=== PATIENT | female | born 1960 | race Two or more races ===

== ENCOUNTER → 2016-12-22 | Outpatient (CLI) | payer OTHER, MEDICARE ==
[2016-05-12 11:25] VITALS: BP 134/67
[~2016-12-22] MED LIST: ALBU8.5H6 IH; BISA-42 PO; CHOL10003 PO; CYAN100T PO; ESOM40CA PO; ETOD400T PO; FENT1PAT15 TD; FENT1PAT21 TD; IBUP-1060 PO; MAGN400T3 PO; OXYC-250 PO; PANT40TA5 PO; POTA20TA4 PO; POTA8TAB PO; TIZA4TAB PO
--- NOTE | 2016-12-23 10:30 | RAD ---
DATE: 12/22/2016 EXAM: DIGITAL SCREEN BILAT W/CAD HISTORY: Routine screening COMPARISON: 09/28/2015 This study was interpreted with the benefit of Computerized Aided Detection (CAD). FINDINGS: Breast Density: SCATTERED The breast parenchyma shows scattered fibroglandular densities. Breast parenchyma level B. There are no dominant suspicious masses, suspicious microcalcifications or evidence of architectural distortion. Benign-appearing calcifications identified in the bilateral breasts. IMPRESSION: Benign findings BI-RADS CATEGORY: 2 BENIGN FINDING RECOMMENDED FOLLOW-UP: 12M 12 MONTH FOLLOW-UP PQRS compliance statement: Patient information was entered into a reminder system with a target due date 12/22/2017 for the next mammogram. Mammography is a sensitive method for finding small breast cancers, but it does not detect them all and is not a substitute for careful clinical examination. A negative mammogram does not negate a clinically suspicious finding and should not result in delay in biopsying a clinically suspicious abnormality. "Our facility is accredited by the [employer] Mammography [employer]."
== END | disposition home or self-care (01) ==
LOC: MAMMO 14:40
PROVIDERS: ATTEND Internal Medicine
DX: Z12.31 Encounter for screening mammogram for malignant neoplasm of breast (principal)
CPT/HCPCS: G0202; 77067

== ENCOUNTER → 2018-03-18 | Outpatient (CLI) | payer OTHER, MEDICARE | END | disposition home or self-care (01) | LOC: KCIC DEXA 14:39 | DX: Z12.31 Encounter for screening mammogram for malignant neoplasm of breast (principal); Z13.820 Encounter for screening for osteoporosis; E34.8 Other specified endocrine disorders | CPT/HCPCS: 77067; 77080 ==

== ENCOUNTER → 2018-05-07 | Outpatient (CLI) | payer OTHER, MEDICARE ==
[2016-05-12 11:25] VITALS: BP 134/67
[~2018-05-07] MED LIST changes: -OXYC-250 PO; +OXYC-328 PO
--- NOTE | 2018-05-07 16:48 | RAD ---
History: Osteoarthritis of the right hip. Pain. Comparison: None. Findings: AP and frog-leg views of the right hip performed weightbearing. No acute fracture or dislocation is identified. Mild right hip degeneration is seen. Impression: Mild right hip degeneration. Electronically signed by: David Marrero MD (05/07/2018 4:45 PM) [place] [id number]
--- NOTE | 2018-05-07 17:23 | RAD ---
Examination: 2 views of the left shoulder HISTORY: History of left shoulder rotator cuff tendinitis COMPARISON: None available. FINDINGS: The humerus head is within the glenoid. Mild degenerative changes glenohumeral joint. Moderate degenerative changes acromioclavicular joint. There is no acute fracture or dislocation identified. IMPRESSION: Degenerative changes glenohumeral joint and a chronic clavicular joint. Electronically signed by: Jonas Hess MD (05/07/2018 5:19 PM) [id number]
== END | disposition home or self-care (01) ==
LOC: RAD 15:52
PROVIDERS: ATTEND Internal Medicine
DX: M16.11 Unilateral primary osteoarthritis, right hip (principal); M19.012 Primary osteoarthritis, left shoulder; Z96.653 Presence of artificial knee joint, bilateral; Z86.711 Personal history of pulmonary embolism; Z87.11 Personal history of peptic ulcer disease; Z87.39 Personal history of other diseases of the musculoskeletal system and connective tissue; Z86.14 Personal history of Methicillin resistant Staphylococcus aureus infection; Z86.010 Personal history of colon polyps; Z90.710 Acquired absence of both cervix and uterus; Z90.49 Acquired absence of other specified parts of digestive tract; Z88.1 Allergy status to other antibiotic agents; Z88.6 Allergy status to analgesic agent; Z88.8 Allergy status to other drugs, medicaments and biological substances; Z82.3 Family history of stroke; Z83.3 Family history of diabetes mellitus
CPT/HCPCS: 73030; 73502

== ENCOUNTER → 2018-06-29 | Outpatient (CLI) | payer OTHER, MEDICARE ==
[2016-05-12 11:25] VITALS: BP 134/67
[~2018-06-29] MED LIST changes: +FURO40TA4 PO
--- NOTE | 2018-06-29 14:07 | PAIN ---
DATE OF SERVICE: 06/29/2018 INITIAL CONSULTATION FOR PAIN CLINIC CHIEF COMPLAINT: Right hip pain. HISTORY OF PRESENT ILLNESS: The patient is a 58-year-old female with history of a fall in [employer] parking lot in November of this year. She fell and hurt her left shoulder more than her right hip, but both have been painful since that time. She is scheduled to have surgery on her left shoulder next month, but her right hip is becoming much more noticeably painful, worse with walking, standing or changing positions. Thus, she is standing on her right leg only, climbing up a stair, getting up on a step or a curb with all of her weight on her right side. The patient reports significant pain in the posterior gluteus, lateral thigh, anterior groin and medial groin and thigh as well, radiating into the anterior thigh. The patient reports that it is getting worse with the activity, standing and walking. She reports it is better with sitting or lying down, but does awaken her from sleep about 3 times a night if she lays on her right side. The patient reports it does not affect her bowel or bladder control, but does affect her ability to walk. She is using a cane, also wearing a back brace, which she reports helps and she has her cane with her today. The patient had plain x-rays and MRI of her right hip showing some narrowing and early changes of degenerative joint disease and osteoarthritis. The patient rates her disability rate from 0-10, 10 being the worst; a 7 with family home responsibilities, recreation, social activity; 8 with occupation; 0 with sexual behavior; 3 with self-care and 7 with life-support activities. The patient reports she has had physical therapy which was not helpful for her hip, but was more helpful for her shoulder and she has had physical therapy for her knees in the past as well as they have both been replaced. The patient reports no loss of motor function, but significant pain with walking, standing and essentially any weightbearing on the right hip, with radiation into the groin, anterior thigh and into the posterior gluteus. PAST MEDICAL HISTORY: Significant for arthritis and diverticulitis. PAST SURGICAL SURGERY: Previous surgeries include varicose vein stripping, colon resection, hernia repair, bilateral knee replacements, left foot cyst excision, carpal tunnel repair bilaterally, ulnar nerve transposition, cholecystectomy, right shoulder surgery and hysterectomy. CURRENT MEDICATIONS: Include Centrum, omeprazole, ibuprofen, oxycodone, pantoprazole, tizanidine, Bentyl, potassium, Lasix, magnesium, iron and zinc. ALLERGIES: THE PATIENT IS ALLERGIC TO IV CONTRAST, CIPRO AND FLAGYL. FAMILY HISTORY: Significant for high blood pressure, cancers and diabetes. SOCIAL HISTORY: The patient does not drink alcohol, does not smoke, does not use any illegal, illicit or recreational drugs. He is , lives with her spouse and has 2 grandchildren living at home and lives locally in [place], [place]. REVIEW OF SYSTEMS: The patient's review of systems is positive for those items mentioned in the history of present illness. All systems reviewed and otherwise negative. It is complete, full and well documented on the patient's chart. PHYSICAL EXAMINATION: VITAL SIGNS: Today, the patient's blood pressure is 144/88, pulse 76, respirations 18 and temperature is 97.7 degrees Fahrenheit. Height is 5 feet 2 inches, weight is 248 pounds. GENERAL: The patient is awake, alert, oriented, appropriate, very pleasant demeanor. HEENT EXAMINATION: Shows normocephalic, atraumatic. Extraocular movements are intact and symmetrical. Oral cavity, mucous membranes are moist and pink. Dentition is intact. NECK: Shows anterior throat supple, without palpable lymphadenopathy noted. Swallow reflex is symmetrical. CHEST: Shows normal with inspection. Breath sounds are clear to auscultation bilaterally. HEART: Shows S1, S2 clear. No murmurs auscultated. ABDOMEN: Obese, soft, nontender and nondistended. No palpable organomegaly is noted. No rebound or guarding demonstrated. BACK: Shows spine grossly in the midline. Slight exaggeration of thoracic kyphosis and some minor flattening of lumbar lordotic curvature. Good rotational motion of both the cervical and lumbar spine both laterally as well as extension and flexion without difficulty. EXTREMITIES: The patient's lower extremities show deep tendon reflexes 1+ in the patellar and tendo calcaneus tendons. A well-healed surgical scar is noted of her bilateral knees. Motor exam is approximately 4 on a scale of 5, but equal and symmetrical dorsiflexion, extension, quadriceps and hamstring flexion. Peripheral pulses are 1+ posterior tibia. No peripheral edema is noted. The patient does have a positive Rosalio sign on the right, with external rotation and displacement of the right hip; left side is negative. The patient is able to stand, has difficulty trying to stand on her toes and uses her left leg significantly to favour when getting out of the chair, also using a cane in her right hand and has a significant antalgic gait, favoring the right lower extremity with a limp with walking. SKIN: Warm and dry, good turgor. No edema. No sores or rashes. IMPRESSION: 1. This is a 58-year-old female with a history of a fall in 11/2017, with pain in the right hip as well as left shoulder. 2. Plain films, right hip, as noted. 3. Arthritis. 4. Bilateral knee replacements. PLAN: Options were discussed with the patient including conservative medical management, physical therapy and interventional techniques. She would like to pursue interventional technique. She has significant pain in the right hip, with radiation to the groin as well as into the gluteus and anterior thigh, excess with weightbearing and consistent with degenerative changes on plain film of the right hip. We discussed an intra-articular joint injection using description as well as anatomical models to describe the procedure. The patient will wait for preauthorization with her insurance provider and she would like to proceed with this. We will, in the meantime, try Medrol Dosepak. The patient was given instruction as well as side effects to be aware of with the medication and she will follow up in approximately 1 week. We will plan on right intra-articular hip joint injection at that time for the primary osteoarthritic hip condition. JOE MACIAS MD DR: YAZ/keya JOB#: [id number] / [id number]
== END | disposition home or self-care (01) ==
LOC: PNCL 10:06
PROVIDERS: ATTEND Anesthesiology
DX: M25.551 Pain in right hip (principal); M19.90 Unspecified osteoarthritis, unspecified site; Z96.653 Presence of artificial knee joint, bilateral; Z90.710 Acquired absence of both cervix and uterus; Z90.49 Acquired absence of other specified parts of digestive tract; Z83.3 Family history of diabetes mellitus
CPT/HCPCS: 99214

== ENCOUNTER → 2018-07-23 | Outpatient (CLI) | payer OTHER, MEDICARE ==
[2016-05-12 11:25] VITALS: BP 134/67
[~2018-07-23] MED LIST changes: +BUPIVACAINE MPF 0.25% 10 ML VIAL. ONE; -OXYC-328 PO; +OXYC1TAB22 PO; +methylPREDNISolone ACETATE 80 MG/ML VIAL. ONE
--- NOTE | 2018-07-23 12:18 | PAIN ---
DATE OF SERVICE: 07/23/2018 PROGRESS NOTE FOR PAIN CLINIC DIAGNOSIS: Right hip joint pain with primary osteoarthritis, right hip joint. HISTORY OF PRESENT ILLNESS: The patient is a 58-year-old female who returns for followup status post pre-evaluation and preauthorization for a right intraarticular hip joint injection. The patient has obtained this now and returns today and would like to proceed. The patient still has significant pain in the right hip with walking, standing, climbing stairs, especially putting all her weight on her right leg, her hip, especially with climbing on a step or stair and walking up a hill on the right side. The patient reports it is becoming more sharp, more shooting into the right groin as well as in the anterior thigh and the posterior gluteus as well. The patient reports it is a 9 on a scale of 10 at its worst, 6 on average, 6 at its least and is a 6 today. The patient reports it is a sharp, becoming more unbearable at times, again with radiating into the right groin with weightbearing. The patient reports it awakens her from sleep about every 4-5 hours, especially if she lays on her right side. The patient reports no new motor or sensory deficits, no new changes. PHYSICAL EXAMINATION: VITAL SIGNS: The patient's blood pressure 118/73, pulse 66, respirations 18, temperature 97.9 degrees Fahrenheit, weight is 244 pounds. GENERAL: The patient is awake, alert, oriented, appropriate, very pleasant demeanor. HEENT: Head shows normocephalic, atraumatic. Extraocular movements are intact and symmetrical. Oral cavity: Mucous membranes are moist and pink. Dentition is intact. NECK: Shows anterior throat supple without palpable lymphadenopathy noted. Swallow reflex is symmetrical. CHEST: Shows normal on inspection. Breath sounds are clear to auscultation bilaterally. HEART: Shows S1, S2 clear. No murmurs auscultated. ABDOMEN: Soft, nontender, nondistended. Significant pannus is noted. The patient shows no organomegaly, rebound or guarding. BACK: Shows spine grossly in the midline. Normal appearing thoracic kyphosis and some minor flattening of lumbar lordotic curvature. Lumbar paraspinous muscle shows symmetrical on inspection without significant tenderness on palpation and good rotational motion laterally as well as extension and flexion. EXTREMITIES: The patient's lower extremities show deep tendon reflexes at 1+ in the patellar and tendo calcaneus tendons, are equal. Motor exam is strong with approximately 4 on a scale of 5, but equal and symmetrical with dorsiflexion, extension, quadriceps and hamstring flexion. Peripheral pulses are 1+ posterior tibial. The patient does have positive Rosalio's maneuver with external rotation on the right side of the hip, but negative on the left. Options were discussed with the patient. The patient's old chart was reviewed as her current medication regimen updated. Current review of systems updated today as well. We will proceed with a right intraarticular hip joint injection today with C-arm fluoroscopic guidance. Risks were discussed including but not limited to bleeding, infection, possibility of intravascular injection sequelae, spread of local anesthetic and numbness, side effects of steroid medication, exposure to fluoroscopy and poor results regarding pain control. The patient understands and wished to proceed. The patient will return to the clinic in approximately 3 weeks for followup, was counseled as to return appointment, activity level and side effects to be aware of. DIAGNOSIS: Primary osteoarthritis, right hip joint with right hip joint pain. PROCEDURE: Right intraarticular hip joint injection using C-arm fluoroscopic guidance under sterile prep and drape using local anesthetic. MEDICATION INJECTED: A total of 80 mg Depo-Medrol plus 3 mL of 0.25% bupivacaine and no contrast as the patient is allergic. CONDITION AT DISCHARGE: Stable. The patient tolerated the procedure well, had no complications. JOE MACIAS MD DR: YAZ/keya JOB#: [id number] / [id number]
== END | disposition home or self-care (01) ==
LOC: PNCL 09:35
PROVIDERS: ATTEND Anesthesiology
DX: M16.11 Unilateral primary osteoarthritis, right hip (principal); Z88.1 Allergy status to other antibiotic agents; Z88.8 Allergy status to other drugs, medicaments and biological substances; Z91.041 Radiographic dye allergy status
CPT/HCPCS: 20610; 77002; J1040; J3490

== ENCOUNTER 2018-07-30 08:20 | Day surgery (SDC) | payer OTHER, MEDICARE ==
[~2018-07-30] VITALS: Ht 157.5 cm; Wt 115.7 kg
[~2018-07-30 08:20] MED LIST changes: -BUPIVACAINE MPF 0.25% 10 ML VIAL. ONE; +LIDOCAINE 2% PF Vial for OR 5 ML VIAL. ONE; +PROPOFOL 20 ML IV ONE; -methylPREDNISolone ACETATE 80 MG/ML VIAL. ONE
[2018-07-30] MEDS ORDERED: ROCURONIUM 50 MG/5 ML VIAL. ONE (08:21)
[2018-07-30] MEDS ORDERED: fentaNYL PF VIAL 100 MCG/2 ML VIAL ONE (08:21)
[2018-07-30] MEDS ORDERED: fentaNYL PF VIAL 100 MCG/2 ML VIAL IV PRN (08:45)
[2018-07-30] MEDS ORDERED: ONDANSETRON PF 4 MG/2 ML VIAL. IV PRN (08:45)
[2018-07-30] MEDS ORDERED: LIDOCAINE 1% PF 2 ML VIAL. ID PRN (08:45)
[2018-07-30] MEDS: IV RINGERS,LACTATED 1000ML 1,000 ML IV SCH ×2 (09:35→13:47)
[2018-07-30] MEDS ORDERED: BUPIVAC MPF-EPI 0.5%-1:200000 30 ML VIAL. ONE (10:15)
[2018-07-30] MEDS ORDERED: EPINEPHrine VIAL 30 MG/30 ML VIAL ONE (10:17)
[2018-07-30] MEDS ORDERED: ROPIVacaine 0.5% PF 20 ML VIAL. ONE (10:27)
[2018-07-30] MEDS ORDERED: MIDAZOLAM HCL/PF 2 MG/2 ML VIAL. ONE (10:28)
[2018-07-30] MEDS ORDERED: DESFLURANE 61 TO 120 MINUTES IH ONE (11:11)
[2018-07-30] MEDS ORDERED: DEXAMETHASONE SOD PHOS 20 MG/5 ML VIAL. ONE (11:11)
--- NOTE | 2018-07-30 11:20 | DISCH ---
DISCHARGE INSTRUCTIONS Condition on Discharge Condition on Discharge: Stable Activity After Discharge Activity Instructions for Disc: Other, see below (and motor use of left hand with elbow at side only, no lifting arm away from side pushing pulling or lifting) Other activity instructions: May pendulum arm at side Diet after Discharge Diet after Discharge: Cardiac, Regular Diet Texture: Regular Liquid Texture: Thin Liquid Wound Incision Care Wound/Incision Care: Change dressing (remove dressing in 3 days may then shower no soaking until sutures removed) Community/Resources/Services Services at Discharge: PT EVALUATE & TREAT (passive range of motion left shoulder only 1 month status post rotator cuff repair) Contacting the DRJeronimo after DC Call your doctor for: Concerns you may have Follow-Up Follow up with: Vasiliy 10-14 days Treatment/Equipment after DC Adaptive Equipment Issued: None OSCAR WADE MD Jul 30, 2018 11:19
[2018-07-30] MEDS ORDERED: OXYC1TAB22 PO (11:22)
[2018-07-30] MEDS ORDERED: ONDANSETRON PF 4 MG/2 ML VIAL. ONE (11:26)
[2018-07-30] MEDS ORDERED: NEOSTIGMINE METHYLSULFATE 5 MG/5 ML SYRINGE. ONE (11:26)
[2018-07-30] MEDS ORDERED: GLYCOPYRROLATE 1 MG/5 ML VIAL. ONE (11:27)
[2018-07-30] MEDS ORDERED: MORPHINE SULFATE 10 MG/ML VIAL. ONE (11:36)
[2018-07-30] MEDS: MORPHINE SULFATE 2 MG/ML VIAL. IV PRN ×2 (13:43→14:20)
[2018-07-30] MEDS: PROCHLORPERAZINE 10 MG/2 ML VIAL. IV PRN ×2 (13:43→14:20)
[2018-07-30] MEDS: fentaNYL PF VIAL 100 MCG/2 ML VIAL IV PRN ×2 (13:46→14:21)
[2018-07-30] MEDS ORDERED: KETOROLAC 30 MG/ML VIAL. IV ONE (14:05)
[2018-07-30] MEDS: HYDROmorphone 2 MG/ML VIAL IV PRN ×3 (14:24→15:05)
[2018-07-30] MEDS ORDERED: oxyCODONE/APAP 10/325 1 TAB TABLET PO ONE (14:30)
[2018-07-30 15:31] VITALS: BP 144/67
--- NOTE | 2018-07-30 19:40 | PDOC4 ---
Operative Note Operative Note Date of surgery: 07/30/2018 Preoperative diagnosis: Full-thickness rotator cuff tear left shoulder Postoperative diagnosis: Same plus severe degenerative changes at the acromioclavicular joint and impingement subacromial Operative procedure: Right shoulder arthroscopy rotator cuff repair and arthroscopic distal clavicle excision subacromial decompression and extensive labral debridement as well as partial thickness debridement of a subscapularis tear Surgeon: Vasiliy Anesthesia: Gen. Estimated blood loss: 15 mL Complications: None Operative indications: Patient is a 58-year-old female with ongoing left shoulder pain unimproved status post an injury with weakness and ongoing pain with use and sleeping. Please see my clinic note for additional details. I gone over with her risks benefits postoperative course of operative treatment including rationale for reattachment of the rotator cuff, assessment of and treatment of any other pathologies as appropriate the long recovery process associated possibility of nonhealing infection nerve or blood vessel damage medical or other anesthetic complications among others. All her questions were answered and she wishes to proceed with surgical evaluation and treatment. Operative text: Patient was identified procedure verified patient placed in the supine position on the operative table. After adequate amounts of general anesthesia were administered he was placed decubitus left side up using the beanbag for support and all bony prominences were well-padded. The left shoulder was prepped and draped in standard sterile fashion and after timeout was performed patient procedure identified and verified she was placed in 10 pounds of traction noted to have previously full range of motion with no instability a standard posterior portal was established an anterior portal established using spinal needle localization and the shoulder joint was systematically examined. 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 glenohumeral joint was well preserved as were the capsule ligament structures. Subacromial space was then entered she was noted to have a large anterior acromial spur which was converted to a type I acromion using the arthroscopic bur using cutting block technique. Distal clavicle was previously symptomatic and was excised 1 cm to achieve an adequate joint space preserving the overlying joint capsule for stability. Rotator cuff repair was then carried out by placing 2 absorbable Laura peek anchors along the medial row after preparation of the footprint to bleeding bony tissue without decortication. Tape sutures were placed in a mattress type fashion and tied with sliding locking knots to form a medial row repair lateral row was repaired with [facility] lateral row sutures which were tensioned to perform an excellent footprint repair watertight under all degrees of internal/external rotation. Shoulder joint was drained of arthroscopic fluid portals were closed with buried Vicryl subcuticular Monocryl Steri-Strips and Mastisol sterile dressings were applied patient was placed in an immobilizer and returned to recovery room in stable condition having tolerated procedure well OSCAR WADE MD Jul 30, 2018 19:40
== END 2018-07-30 16:00 | disposition home or self-care (01) ==
LOC: SURG 08:20
PROVIDERS: ATTEND Orthopaedic Surgery
DX: M75.122 Complete rotator cuff tear or rupture of left shoulder, not specified as traumatic (principal); J45.909 Unspecified asthma, uncomplicated; Z91.041 Radiographic dye allergy status; Z88.8 Allergy status to other drugs, medicaments and biological substances; Z96.653 Presence of artificial knee joint, bilateral; Z90.710 Acquired absence of both cervix and uterus; Z98.890 Other specified postprocedural states
CPT/HCPCS: 29823; 29824; 29827; A7015; C1713; J0171; J0690; J0780; J1100; J1170; J1885; J2001; J2250; J2270; J2405; J2704; J2710; J2795; J3010; J3490; J7120

== ENCOUNTER → 2018-12-10 | Outpatient (CLI) | payer OTHER, MEDICARE ==
[~2018-12-10] MED LIST changes: +BUPIVACAINE MPF 0.25% 10 ML VIAL. ONE; -CYAN100T PO; +CYAN100T2 PO; +IOHEXOL 180 MG/ML 10 ML VIAL. ONE; +LIDOCAINE 1% PF 2 ML VIAL. ONE; -LIDOCAINE 2% PF Vial for OR 5 ML VIAL. ONE; -PROPOFOL 20 ML IV ONE; +methylPREDNISolone ACETATE 80 MG/ML VIAL. ONE
--- NOTE | 2018-12-11 01:39 | PAIN ---
DATE OF SERVICE: 12/10/2018 PROGRESS NOTE FOR PAIN CLINIC: DIAGNOSIS: Right hip joint pain with primary osteoarthritis, right hip joint. HISTORY OF PRESENT ILLNESS: The patient is a 58-year-old female who returns for followup status post right intraarticular hip joint injection x 1. The patient reports about 20% improvement overall. Initially, she was doing much better, but she tripped over a cat at home and stumbled and caused some pain, not only in the hip, but also in her low back on the right side. The patient reports her pain is now a 9 on a scale of 10 at its worst, 7 on average, 6 at its least over the past week, and is a 7 today. The patient reports it is aching and sharp. Denies radiating to the right groin, worse with walking, standing and weightbearing, changing positions, stepping up on a curb or step into a house or a stair. The patient reports no new motor or sensory deficits, still has significant back pain, and is awaiting an MRI scan which was ordered previously. The patient reports it is better with sitting or lying down, does not awaken her from sleep at night. PHYSICAL EXAMINATION: VITAL SIGNS: The patient's blood pressure is 125/91, pulse 73, respirations 18, temperature 97.4 degrees Fahrenheit, height is 5 feet 2 inches and weight is 247 pounds. GENERAL: The patient is awake, alert, oriented, appropriate, very pleasant demeanor. HEENT: Head is normocephalic, atraumatic. Extraocular movements are intact, symmetrical. Oral cavity: Mucous membranes moist and pink. Dentition is intact. NECK: Shows anterior throat supple without palpable lymphadenopathy noted. Swallow reflex symmetrical. CHEST: Shows normal on inspection. Breath sounds clear to auscultation bilaterally. HEART: Shows S1, S2 clear. No murmurs auscultated. ABDOMEN: Soft, nontender, nondistended. No palpable organomegaly is noted. No rebound or guarding demonstrated. BACK: Shows spine grossly in the midline. Normal appearing thoracic kyphosis, some minor flattening of lumbar lordotic curvature. Lumbar paraspinous muscle shows symmetrical on inspection, with palpation shows some moderate tenderness diffusely bilaterally in the middle and lower distribution of paraspinous muscles, but without radiation. EXTREMITIES: The patient's lower extremities show deep tendon reflexes at 1+ in the patellar and tendo calcaneus tendons. Motor exam is approximately 4 on a scale of 5, but equal and symmetrical dorsiflexion, extension, quadriceps and hamstring flexion and equal. The patient does have a positive Rosalio's sign still on the right side with external rotation of the right hip with knee flexion, left side is negative. Peripheral pulses are 1+ posterior tibial. No peripheral edema is noted bilaterally. Options were discussed with the patient. The patient's old chart was reviewed as her current medication regimen updated. Current review of systems updated today as well and we will proceed with a second intraarticular hip joint injection today with fluoroscopic guidance. Risks were again discussed including, but not limited to bleeding, infection, possibility of intravascular injection sequelae, spread of local anesthetic and numbness, side effects of steroid medication and poor results regarding pain control. The patient understands and wished to proceed. The patient will return to clinic in approximately 2 weeks for followup. She was counseled as to return appointment, activity level and side effects to be aware of. DIAGNOSIS: Right hip joint pain with primary osteoarthritis, right hip joint. PROCEDURE: Right intraarticular hip joint injection using C-arm fluoroscopic guidance under sterile prep and drape using local anesthetic. MEDICATION INJECTED: A total of 3 mL of 0.25% bupivacaine and 80 mg Depo-Medrol. CONDITION AT DISCHARGE: Stable. The patient tolerated procedure well, had no complications. JOE MACIAS MD DR: YAZ/keya JOB#: [id number] / [id number]
== END | disposition home or self-care (01) ==
LOC: PNCL 11:11
PROVIDERS: ATTEND Anesthesiology
DX: M16.11 Unilateral primary osteoarthritis, right hip (principal); Z88.1 Allergy status to other antibiotic agents; Z91.041 Radiographic dye allergy status; Z88.8 Allergy status to other drugs, medicaments and biological substances
CPT/HCPCS: 20610; 77002; J1040; J3490; Q9965

== ENCOUNTER → 2019-03-25 | Outpatient (CLI) | payer OTHER ==
[~2019-03-25] MED LIST changes: -BUPIVACAINE MPF 0.25% 10 ML VIAL. ONE; -IOHEXOL 180 MG/ML 10 ML VIAL. ONE; -LIDOCAINE 1% PF 2 ML VIAL. ONE; -PANT40TA5 PO; +PANT40TA77 PO; -TIZA4TAB PO; +TIZA4TAB2 PO; -methylPREDNISolone ACETATE 80 MG/ML VIAL. ONE
--- NOTE | 2019-03-25 15:51 | KCIC ---
Study: MRI of the right hip without contrast INDICATION: Chronic right hip pain. COMPARISON: No prior cross-sectional imaging of the right hip is available for comparison. TECHNIQUE: Multiplanar MR imaging of the right hip performed without the use of intravenous or intra-articular contrast. FINDINGS: The study is limited by patient body habitus with a resultant decrease [id number] ratio. Bones/hip: Extensive marrow edema involving the right femoral head and extending into the neck as well as a prominent area of femoral head subchondral sclerosis. Less pronounced subchondral marrow edema/sclerosis along the acetabular side of the right hip joint but with multifocal prominent subchondral cysts. Severe joint space narrowing and background osteophytosis. The left hip is not well evaluated but there appears to be mild arthrosis. Degenerative changes also seen at the pubic symphysis and bilateral sacroiliac joints. With some mild edema along the iliac side of the joints. Incompletely evaluated degenerative changes the lower lumbar spine with disc space narrowing and desiccation at L5-S1. Labrum/cartilage: Extensive full-thickness chondral loss. Extensive degenerative tearing of the labrum. Ligamentum teres: Difficult to evaluate due to the degree of joint space narrowing. Greater trochanteric bursa: Unremarkable. Musculotendinous: The right gluteus medius and minimus tendons are intact, as are the right iliopsoas and common hamstring tendons. There is tendinosis and probable partial tearing of the left common hamstring origin. Asymmetric fatty atrophy of the right quadratus femoris muscle, image 22 series 5. More mild muscular fatty infiltration scattered elsewhere. Miscellaneous: Small right hip effusion with synovitis. Mild pericapsular edema. The right sciatic nerve bundle is unremarkable. IMPRESSION: 1. Degraded study secondary to patient body habitus which lowers the [id number] ratio. 2. End-stage osteoarthrosis of the right hip as detailed above. Extensive marrow edema involving the femoral head and extending into the femoral neck as well as a prominent area of subchondral sclerosis of the femoral head. These findings are favored related to the severe arthrosis though a component of superimposed avascular necrosis is not entirely excluded. 3. Small right hip joint effusion with synovitis as well as some mild pericapsular soft tissue edema. 4. Degenerative changes also noted at the lower lumbar spine, sacroiliac joints and pubic symphysis. Probable mild osteoarthrosis of the left hip. 5. Left common hamstring origin tendinosis and suspected partial tearing. No acute musculotendinous injury seen at the right hip. 6. Of uncertain etiology is asymmetric fatty atrophy of the quadratus femoris on the right without narrowing of the ischiofemoral space. Electronically signed by: ROSI BAH MD (03/25/2019 3:48 PM) [id number]
== END | disposition home or self-care (01) ==
LOC: KCIC MRI 10:42
PROVIDERS: ATTEND Internal Medicine
DX: M16.11 Unilateral primary osteoarthritis, right hip (principal); M47.817 Spondylosis without myelopathy or radiculopathy, lumbosacral region; M48.07 Spinal stenosis, lumbosacral region; M25.451 Effusion, right hip; G89.29 Other chronic pain; M25.851 Other specified joint disorders, right hip
CPT/HCPCS: 73721

== ENCOUNTER → 2019-05-09 | Outpatient (CLI) | payer BC, OTHER ==
[~2019-05-09] MED LIST changes: +ACET500T68 PO; +DICY10CA3 PO; +FERR325T14 PO; +MAGN250T9 PO; +MAGN400C PO; +MULT-658 PO; +POTA500T5 PO; +ZINC50TA33 PO
[2019-05-09 10:28] LABS: ALBUMIN 3.7 g/dL (3.4-5.0); CALCIUM 9.3 mg/dL (8.5-10.1); CREATININE 0.4 mg/dL (0.6-1.0); GFR 163.9; POTASSIUM 4.6 mmol/L (3.5-5.1)
[2019-05-09 10:35] LABS: BASO % 1 % (0-3); EOS # 0.2 x10^3/uL (0.0-0.7); EOS % 3 % (0-3); HEMATOCRIT 35.6 % (36.0-47.0); HEMOGLOBIN 11.9 g/dL (12.0-15.5); LYMPH # 1.9 x10^3/uL (1.0-4.8); LYMPH % 28 % (24-48); MEAN CORPUSCULAR HEMOGLOBIN 31 pg (25-35); MEAN CORPUSCULAR HGB CONC 33 g/dL (31-37); MEAN CORPUSCULAR VOLUME 93 fL (79-100); MONO # 0.5 x10^3/uL (0.0-1.1); MONO % 7 % (0-9); NEUT # 4.1 x10^3/uL (1.8-7.7); NEUT % 61 % (31-73); PLATELET COUNT 227 x10^3/uL (140-400); RED BLOOD COUNT 3.83 x10^6/uL (3.50-5.40); RED CELL DISTRIBUTION WIDTH 13.1 % (11.5-14.5); WHITE BLOOD COUNT 6.7 x10^3/uL (4.0-11.0)
[2019-05-09 10:41] LABS: PROTHROMBIN TIME PATIENT 13.2 SEC (11.7-14.0)
[2019-05-09 12:26] LABS: BILIRUBIN,URINE NEGATIVE (NEG); CLARITY,URINE CLEAR; COLOR,URINE YELLOW; NITRITE,URINE NEGATIVE (NEG); PROTEIN,URINE NEGATIVE (NEG-TRACE); UROBILINOGEN,URINE 0.2 mg/dL (0.2 mg/dL)
[2019-05-09 12:56] LABS: SQUAMOUS EPITHELIAL CELL,UR MOD /LPF
[2019-05-09 12:57] LABS: AMORPHOUS SEDIMENT,UR PRESENT /HPF; BACTERIA,URINE 0 /HPF (0-FEW); RBC,URINE 0 /HPF (0-2)
--- NOTE | 2019-05-09 12:57 | EKG ---
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
--- NOTE | 2019-05-09 15:47 | RAD ---
CHEST PA LATERAL History: Presurgical evaluation for right hip surgery. Heart murmur. Comparison: 04/22/2016 AP view of the chest. Findings: The cardiomediastinal silhouette is normal. Pulmonary vasculature is normal. The lungs are clear. No pleural effusion or pneumothorax is seen. There is no acute bone abnormality. Upper abdominal surgical clips are present. IMPRESSION: No acute cardiopulmonary process. Electronically signed by: Onesimo Pineda MD (05/09/2019 3:44 PM) [facility]
== END | disposition home or self-care (01) ==
LOC: SURGPAT 16:08
PROVIDERS: ATTEND Orthopaedic Surgery
DX: Z01.818 Encounter for other preprocedural examination (principal); R01.1 Cardiac murmur, unspecified; Z98.890 Other specified postprocedural states; R79.1 Abnormal coagulation profile
CPT/HCPCS: 36415; 71046; 80048; 81001; 82040; 82306; 85025; 85610; 85651; 85730; 87641; 93005

== ENCOUNTER 2019-05-19 19:51 | Emergency (ER) | payer BC, OTHER ==
[~2019-05-19] VITALS: Ht 157.5 cm; Wt 110.2 kg
[~2019-05-19 19:51] MED LIST changes: -MAGN400T3 PO; +MAGN400T5 PO
--- NOTE | 2019-05-19 20:55 | PHYS DOC ---
Past Medical History Past Medical History: Diverticulitis, Other Additional Past Medical Histor: CARPAL TUNNEL Past Surgical History: Cholecystectomy, Hysterectomy, Knee Replacement, Other Additional Past Surgical Histo: HERNIA REPAIR Alcohol Use: None Drug Use: None Adult General Chief Complaint Chief Complaint: HIP PAIN HPI HPI Patient is a 59 year old female with history of chronic right hip pain who presents to the ED today complaining of the same, patient denies any known injury. She rates the pain at 10 out of 10 and describes results throbbing and constant. She states she is supposed to have right hip replacement on May 24, 2019 which is 5 days out, she states she is on Percocet 10/325 mg, she states there is a mixup on her prescription, she states her PCP ordered some pain medicine for her when she went to the pharmacy and they requested insurance approval, she states when she contacted the PCPs office for insurance approval the PCP stated the approval was already done by him but the pharmacy states she cannot be given the prescription until the approval can be done. Patient states the PCP requested her to come to the ED. Review of Systems Review of Systems Constitutional: Denies fever or chills [] Musculoskeletal: Reports right hip pain Integument: Denies rash or skin lesions [] Neurologic: Denies headache, focal weakness or sensory changes [] All other systems were reviewed and found to be within normal limits, except as documented in this note. Current Medications Current Medications Current Medications Medications (Trade) Dose Ordered Sig/Rossy Start Time Stop Time Status Last Admin Dose Admin Diazepam (Valium) 5 mg 1X ONCE 05/19/19 21:00 05/19/19 21:01 05/19/19 20:39 5 MG Hydromorphone HCl (Dilaudid) 1 mg 1X ONCE 05/19/19 21:00 05/19/19 21:01 05/19/19 20:39 1 MG Allergies Allergies Allergies Coded Allergies Type Severity Reaction Last Updated Verified Iodinated Contrast Media Allergy Intermediate hives, SOA, 07/30/18 Yes Metronidazole HCl Allergy Intermediate Hives, chest feels tight 07/30/18 Yes ciprofloxacin HCl Allergy Intermediate Hives, chest feels tight 07/30/18 Yes hydrocortisone Allergy Intermediate Hives, chest feels tight 07/30/18 Yes metronidazole Allergy Intermediate Hives, chest feels tight 07/30/18 Yes I S O L A T I O N *CONTACT* Allergy Unknown 07/30/18 Yes Physical Exam Physical Exam Constitutional: Well developed, well nourished, no acute distress, non-toxic appearance. [] Skin: Warm, dry, no erythema, no rash. [] Back: No tenderness, no CVA tenderness. [] Extremities: Morbidly obese patient. Old healed surgical incisions noted midline bilateral anterior knees. Slight tenderness on palpation of the right lateral hip,no cyanosis, no clubbing, ROM intact, no edema. +2 bilateral pedal pulses. Neurologic: Alert and oriented X 3, normal motor function, normal sensory function, no focal deficits noted. [] Psychologic: Affect normal, judgement normal, mood normal. [] Current Patient Data Vital Signs Vital Signs Date Time Temp Pulse Resp B/P (MAP) Pulse Ox O2 Delivery O2 Flow Rate FiO2 05/19/19 20:39 18 97 Room Air 05/19/19 20:10 98.5 82 166/89 (114) 98.5 EKG EKG [] Radiology/Procedures Radiology/Procedures [] Course & Med Decision Making Course & Med Decision Making Pertinent Labs and Imaging studies reviewed. (See chart for details) This is a 59-year-old female patient who presents to the ED with chronic right hip pain. Patient was given pain medicine in the ED and discharged to home. She has a prescription for pain medicine at the local pharmacy. D/c to home she has right hip replacement on 05/14/2019 Karma Disclaimer Karma Disclaimer This electronic medical record was generated, in whole or in part, using a voice recognition dictation system. Departure Departure Impression: Primary Impression: Right hip pain Disposition: 01 HOME, SELF-CARE Condition: STABLE Referrals: JENNIFER VICENTE MD (PCP) follow up with your doctor as soon as you can Patient Instructions: Hip Pain Additional Instructions: You were seen for right hip pain. Please follow-up with your doctor as soon as you can. ROLAND THAO COMMUNITY LIAISON OFFICER May 19, 2019 20:55
[2019-05-19 21:00] VITALS: BP 112/66
[2019-05-19] MEDS ORDERED: diazePAM 5 MG TABLET PO ONE (21:00)
[2019-05-19] MEDS ORDERED: HYDROmorphone 2 MG/ML VIAL IM ONE (21:00)
== END 2019-05-19 21:45 | disposition home or self-care (01) ==
LOC: ER 19:51
DX: G89.29 Other chronic pain (principal); M25.551 Pain in right hip; Z90.49 Acquired absence of other specified parts of digestive tract; Z90.710 Acquired absence of both cervix and uterus; Z96.659 Presence of unspecified artificial knee joint; Z98.890 Other specified postprocedural states; Z88.1 Allergy status to other antibiotic agents; Z91.041 Radiographic dye allergy status; Z88.8 Allergy status to other drugs, medicaments and biological substances
CPT/HCPCS: 96372; 99284; J1170

== ENCOUNTER 2019-05-24 06:25 | Inpatient (IN) | payer BC, OTHER ==
[~2019-05-24] VITALS: Ht 157.5 cm; Wt 110.2 kg
[2019-05-24] VITALS (8 sets, daily range): BP systolic 110–136; BP diastolic 71–85
[~2019-05-24 06:25] MED LIST changes: +ACETAMINOPHEN 500 MG TABLET PO PRN; +GABAPENTIN 300 MG CAPSULE. PO ONE; +MELOXICAM 7.5 MG TABLET PO PRN; +MORPHINE SULFATE 5 MG, KETOROLAC 30MG VIAL 30 MG, ROPIVacaine 0.5% PF 60 ML, EPINEPHrin... INT ART ONE; +TRANEXAMIC ACID 1,000 MG in IV NS 50ML -- 1ST BAG INJ ONE; +ceFAZolin SODIUM 3 GM in IV DEXTROSE 5% 100ML 100 ML IV PRN
[2019-05-24] MEDS ORDERED: fentaNYL PF VIAL 100 MCG/2 ML VIAL IV PRN (07:00)
[2019-05-24] MEDS ORDERED: IV RINGERS,LACTATED 1000ML 1,000 ML IV SCH (07:00)
[2019-05-24] MEDS ORDERED: ONDANSETRON PF 4 MG/2 ML VIAL. IV PRN (07:00)
[2019-05-24] MEDS ORDERED: ROCURONIUM 50 MG/5 ML VIAL. ONE (07:10)
[2019-05-24] MEDS ORDERED: KETAMINE HCL IN NACL, ISO-OSM 50 MG/5 ML SYRINGE ONE (07:10)
[2019-05-24] MEDS ORDERED: PROPOFOL 20 ML IV ONE (07:10)
[2019-05-24] MEDS ORDERED: ONDANSETRON PF 4 MG/2 ML VIAL. ONE (07:10)
[2019-05-24] MEDS ORDERED: MIDAZOLAM HCL/PF 2 MG/2 ML VIAL. ONE (07:10)
[2019-05-24] MEDS ORDERED: DEXAMETHASONE SOD PHOS 4 MG/ML VIAL ONE (07:10)
[2019-05-24] MEDS ORDERED: LIDOCAINE 2% PF 5 ML VIAL. ONE (07:10)
[2019-05-24] MEDS ORDERED: FAMOTIDINE 20 MG/2 ML VIAL ONE (07:10)
[2019-05-24] MEDS ORDERED: fentaNYL PF VIAL 100 MCG/2 ML VIAL ONE (07:10)
[2019-05-24] MEDS ORDERED: TRANEXAMIC ACID 1,000 MG in IV NS 50ML -- 2ND BAG INJ ONE (08:00)
--- NOTE | 2019-05-24 08:29 | HP ---
ADMIT DATE: 05/24/2019 PREOPERATIVE HISTORY AND PHYSICAL CHIEF COMPLAINT: Right hip pain and DJD. HISTORY OF PRESENT ILLNESS: The patient has worsening right hip pain over a year in duration, severely affecting her activities of daily living. She said even after her previous visit preoperatively, her pain continues to worsen and severely affect her ability to get around. PAST MEDICAL HISTORY: Significant for asthma. PAST SURGICAL HISTORY: Bilateral knee replacement, right shoulder surgery, bilateral carpal tunnel, stomach surgery, hernia repair, cholecystectomy, tubal ligation, hysterectomy, bladder suspension, foot surgery, and a left shoulder arthroscopy. FAMILY HISTORY: Denies any significant family history. SOCIAL HISTORY: Denies smoking, alcohol or nonprescription drug use. MEDICATIONS: Include ibuprofen which was stopped, Percocet, tizanidine. ALLERGIES: INCLUDE CIPROFLOXACIN, FLAGYL AND IV CONTRAST. REVIEW OF SYSTEMS: She denies any chest pain, shortness of breath, recent febrile illness, any constitutional symptoms, change in bowel or bladder habits, focal weakness, numbness or tingling. She is significant for the ongoing severe right hip pain. PHYSICAL EXAMINATION: VITAL SIGNS: Per admission sheet. HEENT: Atraumatic, normocephalic. HEART: Regular rate and rhythm. LUNGS: Clear to auscultation bilaterally. ABDOMEN: Benign. EXTREMITIES: Examination of the right hip reveals decreased motion in all planes compared to the left, pain on extremes of her already limited range of motion. Leg lengths are equal. She has well-healed incisions over both total knees with good alignment stability, negative straight leg raise, normal alignment stability of bilateral ankles with intact motor function, distal pulses, sensation, reflexes, and skin in both lower extremities throughout. IMAGING: X-rays and MRI show severe degenerative changes in the right hip. IMPRESSION: Degenerative painful right hip. TREATMENT PLAN: I went over with her previously possibility of total hip arthroplasty including the risks, benefits, postoperative course possibility of instability, premature wear or loosening, infection, leg length inequality, nerve or blood vessel damage, medical or other anesthetic complications among others. All her questions were answered. She wishes to proceed with surgical evaluation and treatment today, which will include [facility] admission to follow. OSCAR WADE MD DR: RICHELLE/keya JOB#: [id number] / [id number]
[2019-05-24] MEDS ORDERED: NEOSTIGMINE METHYLSULFATE 5 MG/5 ML SYRINGE. ONE (09:47)
[2019-05-24] MEDS ORDERED: SEVOFLURANE > 120 MINUTES. IH ONE (09:47)
[2019-05-24] MEDS ORDERED: GLYCOPYRROLATE 1 MG/5 ML VIAL. ONE (09:47)
[2019-05-24] MEDS ORDERED: diphenhydrAMINE 50 MG/ML VIAL IV PRN (10:00)
[2019-05-24] MEDS ORDERED: CALCIUM CARBONATE 500 MG TAB.CHEW PO PRN (10:00)
[2019-05-24] MEDS ORDERED: ceFAZolin SODIUM 3 GM in IV DEXTROSE 5% 100ML 100 ML IV SCH (10:00)
[2019-05-24] MEDS ORDERED: PROCHLORPERAZINE 5 MG TABLET. PO PRN (10:00)
[2019-05-24] MEDS ORDERED: DEXTROSE 50% 25 GM / 50ML DISP.SYRIN. IV PRN (10:00)
[2019-05-24] MEDS: fentaNYL PF VIAL 100 MCG/2 ML VIAL IV PRN ×4 (10:11→23:00)
[2019-05-24] MEDS: PROCHLORPERAZINE 10 MG/2 ML VIAL. IV PRN ×2 (10:11→10:28)
--- NOTE | 2019-05-24 10:13 | PDOC4 ---
Operative Note Operative Note Date of surgery: 05/24/2019 Preoperative diagnosis: Degenerative joint disease right hip Postoperative diagnosis: Same Operative procedure: Right total hip arthroplasty Surgeon: Vasiliy Assist: Seth Anesthesia: Gen. Estimated blood loss: 400 mL Specimens: Femoral head to pathology Drains: Pain catheter and Hemovac Complications: None Operative indications: Please see my dictated preoperative history and physical for detailed operative indications Operative text: Patient was identified procedure verified patient placed in the supine position on the operating table. After adequate amounts of general anesthesia were administered she was placed decubitus right side up using the Stulberg hip positioner all bony prominences were well-padded and the right hip was prepped and draped in standard sterile fashion. After timeout was performed patient procedure identified and verified a curvilinear incision was made over the lateral aspect of the hip centered on the greater trochanter iliotibial band and gluteal fascia were divided in line with their fibers Charnley retractor was placed hip capsule was split in a T fashion and the hip was dislocated and femoral cut was made in accordance with the cutting guide acetabulum was exposed contents of the fovea and labrum were removed and successive reaming was carried out up to a size 53 with a size 54 [employer]um [employer]hew 3-hole hemispherical sticktight coated shell impacted in proper version a single 35 mm screw was placed superiorly and a 0 36 mm inside diameter acetabular liner was impacted femur was then prepared with reaming and broaching up to a size 14 standard offset +0 which reproduced her leg length stability and offset. Trial components were removed a size 14 standard offset synergy porous coated femoral component was impacted into place and a +0 36 mm Oxinium head impacted into place reduced and again found to have equivalent stability to about 60 internal rotation at 90 hip flexion leg length and offset were restored thorough irrigation carried out normal saline solution external rotators were reattached transosseously with Ethibond suture hip capsule was likewise repaired with #5 Ethibond pain catheter and Hemovac drain were placed fascia was closed with Ethibond suture active with #1 PDS strata fix suture subcutaneous closure with buried Vicryl suture subcuticular 3-0 Monocryl strata fix sterile dressings consisting of a alejandra drain were placed patient was returned to recovery room in stable condition having tolerated procedure well. Davis Ann nurse practitioner was present for the procedure assisted in the prepping draping retraction and skin closure OSCAR WADE MD May 24, 2019 10:13
[2019-05-24] MEDS: MORPHINE SULFATE 2 MG/ML VIAL. IV PRN ×2 (10:22→10:32)
[2019-05-24] MEDS ORDERED: HYDROmorphone 2 MG/ML VIAL ONE ×2 (10:22→10:30)
[2019-05-24] MEDS: HYDROmorphone 2 MG/ML VIAL IV PRN ×4 (10:30→11:44)
[2019-05-24] MEDS ORDERED: HYDROmorphone 2 MG/ML VIAL IV ONE (10:30)
[2019-05-24] MEDS: tiZANidine 4 MG TABLET. PO SCH ×2 (12:00→21:05)
[2019-05-24] MEDS: FUROSEMIDE 40 MG TABLET. PO SCH (12:00)
[2019-05-24] MEDS: ONDANSETRON PF 4 MG/2 ML VIAL. IV SCH ×2 (12:00→18:00)
[2019-05-24] MEDS: ONDANSETRON ODT 4 MG TAB.RAPDIS. PO SCH ×2 (12:00→18:00)
[2019-05-24] MEDS ORDERED: ZINC SULFATE 220 MG CAPSULE. PO SCH (12:00)
[2019-05-24] MEDS: DICYCLOMINE HCL 10 MG CAPSULE PO SCH ×3 (13:00→21:05)
[2019-05-24] MEDS ORDERED: FLU VAX QS 2019-20 (36MOS+)/PF 0.5 ML SYRINGE. VAX IM ONE (13:15)
--- NOTE | 2019-05-24 15:06 | NUR ---
1150 Admitted from PACU per bed, alert very drowsy, states pain level 8/10, dressing clean, dry & intact to right hip with Caitlin attachment in place, SCD/EVA in place for DVT prevention, IVF infusing into right hand, Hemovac in place, see admission, call light within reach, rails upx3, family at bedside
--- NOTE | 2019-05-24 15:57 | RAD ---
Examination: HIP RIGHT 2V WITH PELVIS History: Postoperative Comparison/Correlation: None Findings: Total of 4 images of the right hip were obtained including crosstable lateral view. Right hip joint prosthesis is present. Degenerative changes of the symphysis pubis are present. No fracture. No loosening. Overlying drainage catheter tubing is present. Soft tissue gas consistent with postoperative status noted. Impression: Right hip joint prosthesis is intact and in place. Electronically signed by: Onesimo Pineda MD (05/24/2019 3:54 PM) [facility]
[2019-05-24] MEDS ORDERED: WARFARIN 7.5 MG TABLET. PO ONE (16:00)
[2019-05-24] MEDS: IV NORMAL SALINE 1000ML BAG 1,000 ML IV SCH (16:05)
[2019-05-24] MEDS: ceFAZolin SODIUM 3 GM in IV DEXTROSE 5% 100ML 100 ML IV SCH ×2 (16:06→21:05)
[2019-05-24] MEDS: PANTOPRAZOLE 40 MG TABLET.DR. PO SCH (16:07)
[2019-05-24] MEDS: FERROUS SULFATE 325 MG TABLET. PO SCH (16:17)
[2019-05-24] MEDS: oxyCODONE IR 5 MG TABLET PO PRN ×2 (16:17→21:05)
[2019-05-24] MEDS ORDERED: FERROUS SULFATE 325 MG TABLET. PO SCH (16:30)
[2019-05-24] MEDS: KETOROLAC 30MG VIAL 30 MG, BUPIVACAINE MPF 0.25% 20 ML, EPINEPHrine 0.5 MG in TOTAL VOL... INT ART SCH (18:00)
--- NOTE | 2019-05-24 18:05 | NUR ---
Zofran held no nausea or vomiting
--- NOTE | 2019-05-24 18:06 | NUR ---
IAC held no access
[2019-05-24] MEDS ORDERED: POTASSIUM GLUCONATE 595 MG PO SCH (21:00)
[2019-05-24] MEDS: MAGNESIUM OXIDE 400 MG TABLET PO SCH (21:05)
[2019-05-24] MEDS: CHOLECALCIFEROL (VITAMIN D3) 1,000 UNIT TABLET PO SCH (21:05)
[2019-05-24] MEDS: ZINC SULFATE 220 MG CAPSULE. PO SCH (21:05)
--- NOTE | 2019-05-24 23:00 | NUR ---
IAC infused w/o incident. Fentanyl given IVP. Moderate assist x2 needed to transfer into bariatric bed.
[2019-05-25] MEDS: fentaNYL PF VIAL 100 MCG/2 ML VIAL IV PRN (02:03)
[2019-05-25] MEDS: ceFAZolin SODIUM 3 GM in IV DEXTROSE 5% 100ML 100 ML IV SCH (02:55)
[2019-05-25 03:00] VITALS: BP 102/62
--- NOTE | 2019-05-25 04:45 | NUR ---
Hemovac accidentally removed. Assisted pt back to bed. Very weak and painful.Morphine given IVP. New 20g IV started RFA. Old cath had kink in it.
[2019-05-25] MEDS: MORPHINE SULFATE 2 MG/ML VIAL. IV PRN ×3 (04:46→21:08)
[2019-05-25 04:47] LABS: PROTHROMBIN TIME PATIENT 17.6 SEC (11.7-14.0)
[2019-05-25 04:56] LABS: HEMOGLOBIN 10.2 g/dL (12.0-15.5); RED BLOOD COUNT 3.25 x10^6/uL (3.50-5.40); WHITE BLOOD COUNT 10.9 x10^3/uL (4.0-11.0)
[2019-05-25] MEDS ORDERED: MAGNESIUM HYDROXIDE 2,400 MG/30 ML ORAL.SUSP. PO PRN (06:00)
[2019-05-25] MEDS: ONDANSETRON PF 4 MG/2 ML VIAL. IV SCH ×2 (06:00)
[2019-05-25] MEDS: ONDANSETRON ODT 4 MG TAB.RAPDIS. PO SCH ×2 (06:00)
[2019-05-25] MEDS: GABAPENTIN 100 MG CAPSULE. PO SCH ×3 (06:13→23:31)
[2019-05-25] MEDS: PANTOPRAZOLE 40 MG TABLET.DR. PO SCH ×2 (06:13→16:28)
[2019-05-25] MEDS: traMADol 50 MG TABLET PO SCH ×4 (06:13→23:31)
[2019-05-25] MEDS: KETOROLAC 30MG VIAL 30 MG, BUPIVACAINE MPF 0.25% 20 ML, EPINEPHrine 0.5 MG in TOTAL VOL... INT ART SCH (06:14)
[2019-05-25 07:20] VITALS: BP 119/69
[2019-05-25] MEDS: ZINC SULFATE 220 MG CAPSULE. PO SCH ×2 (07:51→21:10)
[2019-05-25] MEDS: FERROUS SULFATE 325 MG TABLET. PO SCH ×2 (07:51→17:49)
[2019-05-25] MEDS: MAGNESIUM OXIDE 400 MG TABLET PO SCH ×2 (07:51→21:10)
[2019-05-25] MEDS: tiZANidine 4 MG TABLET. PO SCH ×2 (07:52→21:11)
[2019-05-25] MEDS: ACETAMINOPHEN 500 MG TABLET PO SCH ×3 (07:52→21:11)
[2019-05-25] MEDS: oxyCODONE IR 5 MG TABLET PO PRN ×3 (07:52→17:52)
[2019-05-25] MEDS: DICYCLOMINE HCL 10 MG CAPSULE PO SCH ×4 (07:52→21:10)
[2019-05-25] MEDS: CHOLECALCIFEROL (VITAMIN D3) 1,000 UNIT TABLET PO SCH ×2 (07:53→21:11)
--- NOTE | 2019-05-25 07:55 | PDOC ---
ORTHO PROGRESS NOTES Subjective Patient painful and concerned about ambulation. Post-op Day: 1 Procedure R BEATRIZ Vitals Vital Signs Date Time Temp Pulse Resp B/P (MAP) Pulse Ox O2 Delivery O2 Flow Rate FiO2 05/25/19 07:20 98.9 95 24 119/69 (86) 99 Room Air 98.9 05/24/19 15:15 2.0 Labs Laboratory Tests Test 05/24/19 06:17 05/25/19 04:25 Prothrombin Time 13.0 SEC (11.7-14.0) 17.6 SEC (11.7-14.0) Prothromb Time International Ratio 1.0 (0.8-1.1) 1.5 (0.8-1.1) Activated Partial Thromboplast Time 37 SEC (24-38) White Blood Count 10.9 x10^3/uL (4.0-11.0) Red Blood Count 3.25 x10^6/uL (3.50-5.40) Hemoglobin 10.2 g/dL (12.0-15.5) Hematocrit 30.0 % (36.0-47.0) Mean Corpuscular Volume 92 fL (79-100) Mean Corpuscular Hemoglobin 31 pg (25-35) Mean Corpuscular Hemoglobin Concent 34 g/dL (31-37) Red Cell Distribution Width 13.0 % (11.5-14.5) Platelet Count 244 x10^3/uL (140-400) Laboratory Tests Test 05/25/19 04:25 White Blood Count 10.9 x10^3/uL (4.0-11.0) Red Blood Count 3.25 x10^6/uL (3.50-5.40) Hemoglobin 10.2 g/dL (12.0-15.5) Hematocrit 30.0 % (36.0-47.0) Mean Corpuscular Volume 92 fL (79-100) Mean Corpuscular Hemoglobin 31 pg (25-35) Mean Corpuscular Hemoglobin Concent 34 g/dL (31-37) Red Cell Distribution Width 13.0 % (11.5-14.5) Platelet Count 244 x10^3/uL (140-400) Prothrombin Time 17.6 SEC (11.7-14.0) Prothromb Time International Ratio 1.5 (0.8-1.1) Notes awake and alert Assessment and Plan POD # 1 S/P R BEATRIZ motor and sensory intact distally calf soft and non tender dressing dry and intact continue PT EMMA PEREZ APRN May 25, 2019 07:55
[2019-05-25] MEDS: FUROSEMIDE 40 MG TABLET. PO SCH (08:05)
[2019-05-25] MEDS ORDERED: MAGNESIUM OXIDE 250 MG PO SCH (09:00)
--- NOTE | 2019-05-25 11:58 | NUR ---
Pharmacy Warfarin Dosing Note S:Pharmacy consulted to assist with anticoagulation therapy started 05/24/19 with target INR: 1.6 - 2.5 O:BINDU HAMPTON is a 59 year old F with BEATRIZ LABS: Last INR: 1.5 Last HGB: 10.2 Last HCT: 30.0 Last PLT: 244 Last dose of 7.5 mg given on 05/24/19 at 1607 Previous Regimen: Vitamin K given: Drug Interaction Changes: Ongoing Drug Interactions: A:INR of 1.5 is below desired range. Target range for this patient is: 1.6 - 2.5 P: Warfarin dose: 3 mg Today at 1600 Bridge Therapy: Next INR due IN AM Pharmacy anticoagulation service will continue to follow. NASIMA TORRES, [facility], 05/25/19 [id number]
[2019-05-25] MEDS ORDERED: ONDANSETRON ODT 4 MG TAB.RAPDIS. PO PRN (12:00)
[2019-05-25] MEDS ORDERED: ONDANSETRON PF 4 MG/2 ML VIAL. IV PRN (12:00)
[2019-05-25] MEDS: SENNOSIDES/DOCUSATE 8.6/50MG TABLET. PO SCH (12:00)
[2019-05-25] MEDS: MULTIVITAMIN with MINERAL TABLET. PO SCH (12:04)
[2019-05-25] MEDS: IV NORMAL SALINE 1000ML BAG 1,000 ML IV SCH (15:51)
[2019-05-25] MEDS ORDERED: BISACODYL 10 MG SUPP.RECT. PR PRN (16:00)
[2019-05-25] MEDS ORDERED: WARFARIN 3 MG TABLET. PO ONE (16:00)
[2019-05-25 17:55] VITALS: BP 128/75
[2019-05-25] MEDS: 0.9 % SODIUM CHLORIDE 10 ML DISP.SYRIN. IV PRN (21:09)
[2019-05-26] MEDS: ACETAMINOPHEN 500 MG TABLET PO SCH ×4 (03:00→21:00)
[2019-05-26] MEDS: traMADol 50 MG TABLET PO SCH ×4 (05:10→23:41)
[2019-05-26] MEDS: PANTOPRAZOLE 40 MG TABLET.DR. PO SCH ×2 (05:10→16:12)
[2019-05-26] MEDS: oxyCODONE IR 5 MG TABLET PO PRN ×3 (05:10→14:11)
[2019-05-26 05:33] LABS: HEMATOCRIT 26.4 % (36.0-47.0); HEMOGLOBIN 8.9 g/dL (12.0-15.5)
[2019-05-26 05:38] LABS: PROTHROMBIN TIME PATIENT 18.4 SEC (11.7-14.0)
[2019-05-26 06:09] VITALS: BP 114/75
[2019-05-26] MEDS: GABAPENTIN 100 MG CAPSULE. PO SCH ×3 (06:42→22:00)
[2019-05-26] MEDS: MULTIVITAMIN with MINERAL TABLET. PO SCH (08:12)
[2019-05-26] MEDS: CHOLECALCIFEROL (VITAMIN D3) 1,000 UNIT TABLET PO SCH ×2 (08:12→20:44)
[2019-05-26] MEDS: FUROSEMIDE 40 MG TABLET. PO SCH (08:12)
[2019-05-26] MEDS: FERROUS SULFATE 325 MG TABLET. PO SCH ×2 (08:12→16:12)
[2019-05-26] MEDS: ZINC SULFATE 220 MG CAPSULE. PO SCH ×2 (08:12→20:44)
[2019-05-26] MEDS: MAGNESIUM OXIDE 400 MG TABLET PO SCH ×2 (08:12→20:44)
[2019-05-26] MEDS: SENNOSIDES/DOCUSATE 8.6/50MG TABLET. PO SCH (08:12)
[2019-05-26] MEDS: tiZANidine 4 MG TABLET. PO SCH ×2 (08:12→20:44)
[2019-05-26] MEDS: DICYCLOMINE HCL 10 MG CAPSULE PO SCH ×4 (08:12→20:44)
--- NOTE | 2019-05-26 11:08 | NUR ---
Pharmacy Warfarin Dosing Note S:Pharmacy consulted to assist with anticoagulation therapy started 05/24/19 with target INR: 1.6 - 2.5 O:BINDU HAMPTON is a 59 year old F with BEATRIZ LABS: Last INR: 1.6 Last HGB: 8.9 Last HCT: 26.4 Last PLT: 244 Last dose of 3 mg given on 05/25/19 at 1521 Previous Regimen: Vitamin K given: Drug Interaction Changes: Ongoing Drug Interactions: A:INR of 1.6 is within desired range. Target range for this patient is: 1.6 - 2.5 P: Warfarin dose: 3 mg Today at 1600 Bridge Therapy: Next INR due IN AM Pharmacy anticoagulation service will continue to follow. NASIMA TORRES, [facility], 05/26/19 [id number]
[2019-05-26] MEDS: MORPHINE SULFATE 2 MG/ML VIAL. IV PRN (14:22)
--- NOTE | 2019-05-26 15:07 | PATHOLOGY ---
[facility] Accession Number: [id number] . 01 Material submitted: . hip - RIGHT HIP BONE. Modifiers: right . 01 Clinical history: . Osteoarthritis R hip . 02 Diagnosis: "Right hip bone", total hip arthroplasty: - Decalcified bone and articular cartilage with extensive degenerative joint disease and osteonecrosis. - Bone marrow with trilineage hematopoiesis. (CLW:kiran; 05/26/2019) QMS 05/26/2019 0956 Local . 02 Electronically signed: . Gretchen Rodarte MD, Pathologist NPI- [id number] . 01 Gross description: . Received in formalin labeled "Oxana Greene, right hip bone," is a femoral head with attached femoral neck measuring 4.6 x 4.6 x 4.9 cm in greatest dimensions. The articular surface is smooth to granular and pale yellow-bauman to dark brown in appearance, displaying an area of extensive eburnation/pitting measuring 4.3 x 4.2 cm. Serial sectioning reveals granular, yellow-bauman to hemorrhagic cut surfaces, with an area of friable, hemorrhagic bone underlying a portion of the peripheral articular surface. A large area of granular, white-bauman discoloration is noted underlying approximately 50% of the eburnated area. The specimen is submitted representatively in cassette A1, following decalcification. (DAC; 05/25/2019) XDC/XDC 05/26/2019 0955 Local . 02 Pathologist provided ICD-10: M16.11 . 02 CPT . 671961, [id number] Specimen Comment: A courtesy copy of this report has been sent to Specimen Comment: [phone]. Specimen Comment: Report sent to Performed at: 01 [facility] [place] [id number] [facility] [address], [place], [place] [id number] MD Myles Colvin MD Phone: [phone] Performed at: 02 [facility] [place] [address] [place], [place] [id number] MD Carlos Méndez MD Phone: [phone]
[2019-05-26] MEDS ORDERED: WARFARIN 3 MG TABLET. PO ONE (16:00)
[2019-05-26 18:00] VITALS: BP 104/59
[2019-05-26] MEDS: oxyCODONE/APAP 10/325 1 TAB TABLET PO PRN (20:44)
[2019-05-26] MEDS: 0.9 % SODIUM CHLORIDE 10 ML DISP.SYRIN. IV PRN (20:45)
[2019-05-27] MEDS: oxyCODONE/APAP 10/325 1 TAB TABLET PO PRN ×5 (00:54→21:57)
[2019-05-27] MEDS: BISACODYL 5 MG TABLET.DR. PO PRN ×2 (00:54→22:10)
[2019-05-27] MEDS: ACETAMINOPHEN 500 MG TABLET PO SCH ×4 (02:42→21:57)
[2019-05-27] MEDS: oxyCODONE IR 5 MG TABLET PO PRN (02:42)
[2019-05-27] MEDS: PANTOPRAZOLE 40 MG TABLET.DR. PO SCH ×2 (06:06→16:54)
[2019-05-27] MEDS: GABAPENTIN 100 MG CAPSULE. PO SCH ×3 (06:06→21:57)
[2019-05-27] MEDS: traMADol 50 MG TABLET PO SCH ×3 (06:07→16:55)
[2019-05-27 06:10] VITALS: BP 122/72
[2019-05-27] MEDS: MULTIVITAMIN with MINERAL TABLET. PO SCH (07:39)
[2019-05-27] MEDS: FUROSEMIDE 40 MG TABLET. PO SCH (07:39)
[2019-05-27] MEDS: DICYCLOMINE HCL 10 MG CAPSULE PO SCH ×4 (07:39→21:57)
[2019-05-27] MEDS: MAGNESIUM OXIDE 400 MG TABLET PO SCH ×2 (07:39→21:57)
[2019-05-27] MEDS: FERROUS SULFATE 325 MG TABLET. PO SCH ×2 (07:39→16:54)
[2019-05-27] MEDS: CHOLECALCIFEROL (VITAMIN D3) 1,000 UNIT TABLET PO SCH ×2 (07:39→21:57)
[2019-05-27] MEDS: SENNOSIDES/DOCUSATE 8.6/50MG TABLET. PO SCH (07:39)
[2019-05-27] MEDS: tiZANidine 4 MG TABLET. PO SCH ×2 (07:39→21:57)
[2019-05-27] MEDS: ZINC SULFATE 220 MG CAPSULE. PO SCH ×2 (07:43→21:58)
[2019-05-27 07:50] LABS: HEMOGLOBIN 9.2 g/dL (12.0-15.5)
[2019-05-27 08:01] LABS: PROTHROMBIN TIME PATIENT 16.9 SEC (11.7-14.0)
--- NOTE | 2019-05-27 11:47 | PDOC ---
PROGRESS NOTES Subjective Subjective Problems overnight: Delayed entry from 05/26/2019 is a lot more pain today and questioning whether she should be on her regular pain medicine that she gets at home or more Objective Vital Signs Vital Signs Date Time Temp Pulse Resp B/P (MAP) Pulse Ox O2 Delivery O2 Flow Rate FiO2 05/27/19 08:43 95 Room Air 05/27/19 06:10 98.5 76 16 122/72 (89) 98.5 05/24/19 15:15 2.0 Physical Exam On exam alejandra dressing overall intact no surrounding redness or erythema leg lengths are equal she tends to turn her right leg inward somewhat and reports being pigeon toed at baseline distal neurovascular status intact Labs Laboratory Tests Test 05/26/19 05:00 05/27/19 07:06 Hemoglobin 8.9 g/dL (12.0-15.5) 9.2 g/dL (12.0-15.5) Hematocrit 26.4 % (36.0-47.0) 28.0 % (36.0-47.0) Mean Corpuscular Hemoglobin Concent 34 g/dL (31-37) 33 g/dL (31-37) Prothrombin Time 18.4 SEC (11.7-14.0) 16.9 SEC (11.7-14.0) Prothromb Time International Ratio 1.6 (0.8-1.1) 1.4 (0.8-1.1) Laboratory Tests Test 05/27/19 07:06 Hemoglobin 9.2 g/dL (12.0-15.5) Hematocrit 28.0 % (36.0-47.0) Mean Corpuscular Hemoglobin Concent 33 g/dL (31-37) Prothrombin Time 16.9 SEC (11.7-14.0) Prothromb Time International Ratio 1.4 (0.8-1.1) Assessment Assessment POD# 2 right total hip Plan Plan of Care Need significant assistance with physical therapy, pain relatively poorly controlled will go back on home dose Coumadin anticoagulation Anticipate likely rehabilitation stay required OSCAR WADE MD May 27, 2019 11:47
--- NOTE | 2019-05-27 12:21 | NUR ---
Pharmacy Warfarin Dosing Note S:Pharmacy consulted to assist with anticoagulation therapy started 05/24/19 with target INR: 1.6 - 2.5 O:BINDU HAMPTON is a 59 year old F with BEATRIZ Allergies:Metronidazole HCl (From Flagyl) ciprofloxacin HCl (From Cipro ) Iodinated Contrast Media hydrocortisone (From Cipro HC) metronidazole (From Flagyl) Height: 5 feet, 2 inches Weight: 115.7 kg LABS: Last INR: 1.4 Last HGB: 9.2 Last HCT: 28 Last PLT: 244 Ongoing Drug Interactions: none A:INR below desired Range. Target Range for this patient is: 1.6 - 2.5 P: Warfarin dose: 5 mg will be given today prior to discharge. Give 4 mg daily. Draw INR on 05/30/19, and request attending physician to dose warfarin for a goal INR 1.6 - 2.5 through end of therapy 07/04/19 (6 weeks of therapy). Indication for warfarin is prevention of VTE after major joint surgery. SHARDA FROST [facility], 05/27/19 3101
[2019-05-27] MEDS ORDERED: WARFARIN 5 MG TABLET. PO ONE (14:00)
--- NOTE | 2019-05-27 17:24 | NUR ---
Patient moved to room 440 around 1715. Report given to RANDALL Shea. All of patients belongings were taken to her room. Discharge instructions from Dr Amanda were typed up for possible discharge to [facility] tomorrow in regards to our [facility] teaching. Monse to take over care at this time.
[2019-05-27 19:00] VITALS: BP 110/54
[2019-05-27] MEDS: ZOLPIDEM 5 MG TABLET. PO PRN (22:10)
[2019-05-27 23:00] VITALS: BP 120/66
[2019-05-28] MEDS: traMADol 50 MG TABLET PO SCH ×4 (00:02→16:44)
[2019-05-28] MEDS: ACETAMINOPHEN 500 MG TABLET PO SCH ×4 (02:27→21:00)
[2019-05-28] MEDS: oxyCODONE/APAP 10/325 1 TAB TABLET PO PRN ×6 (02:27→23:06)
[2019-05-28 03:59] VITALS: BP 106/86
[2019-05-28 06:23] LABS: HEMATOCRIT 27.4 % (36.0-47.0); HEMOGLOBIN 9.1 g/dL (12.0-15.5)
[2019-05-28] MEDS: GABAPENTIN 100 MG CAPSULE. PO SCH ×3 (06:26→22:34)
[2019-05-28] MEDS: PANTOPRAZOLE 40 MG TABLET.DR. PO SCH ×2 (06:27→16:44)
[2019-05-28 06:32] LABS: PROTHROMBIN TIME PATIENT 16.2 SEC (11.7-14.0)
[2019-05-28 07:00] VITALS: BP 115/69
[2019-05-28] MEDS: SENNOSIDES/DOCUSATE 8.6/50MG TABLET. PO SCH (08:47)
[2019-05-28] MEDS: MULTIVITAMIN with MINERAL TABLET. PO SCH (08:47)
[2019-05-28] MEDS: tiZANidine 4 MG TABLET. PO SCH ×2 (08:47→22:28)
[2019-05-28] MEDS: ZINC SULFATE 220 MG CAPSULE. PO SCH ×2 (08:47→22:29)
[2019-05-28] MEDS: FERROUS SULFATE 325 MG TABLET. PO SCH ×2 (08:47→16:44)
[2019-05-28] MEDS: DICYCLOMINE HCL 10 MG CAPSULE PO SCH ×4 (08:47→22:28)
[2019-05-28] MEDS: FUROSEMIDE 40 MG TABLET. PO SCH (08:47)
[2019-05-28] MEDS: CHOLECALCIFEROL (VITAMIN D3) 1,000 UNIT TABLET PO SCH ×2 (08:47→22:28)
[2019-05-28] MEDS: MAGNESIUM OXIDE 400 MG TABLET PO SCH ×2 (08:47→22:29)
[2019-05-28 11:00] VITALS: BP 86/47
--- NOTE | 2019-05-28 14:16 | NUR ---
Pharmacy Warfarin Dosing Note S:Pharmacy consulted to assist with anticoagulation therapy started 05/24/19 with target INR: 1.6 - 2.5 O:BINDU HAMPTON is a 59 year old F with BEATRIZ Allergies:Metronidazole HCl (From Flagyl) ciprofloxacin HCl (From Cipro ) Iodinated Contrast Media hydrocortisone (From Cipro ) metronidazole (From Flagyl) Height: 5 feet, 2 inches Weight: 115.7 kg LABS: Last INR: 1.3 Last HGB: 9.1 Last HCT: 27.4 Last PLT: 244 Ongoing Drug Interactions: A:INR below desired Range. Target Range for this patient is: 1.6 - 2.5 P: Warfarin dose: 6 mg will be given today prior to discharge. Give 5mg daily. Draw INR on 05/30/19, and request attending physician to dose warfarin for a goal INR 1.6 - 2.5 through end of therapy 07/04/19 (6 weeks of therapy). Indication for warfarin is prevention of VTE after major joint surgery. Kerrie Glass RPH, 05/28/19 2410
[2019-05-28 15:00] VITALS: BP 115/69
[2019-05-28] MEDS ORDERED: WARFARIN 3 MG TABLET. PO ONE (15:00)
--- NOTE | 2019-05-28 16:21 | PDOC ---
PROGRESS NOTES Subjective Subjective Problems overnight: Delayed entry from 05/27/2019, Oxana indicates less pain than prior to her hip replacement. She is still limited in her ability to get around without assistance and had previously been recommended for inpatient rehabilitation. Originally that was to be arranged for yesterday however social work was awaiting insurance approval Objective Vital Signs Vital Signs Date Time Temp Pulse Resp B/P (MAP) Pulse Ox O2 Delivery O2 Flow Rate FiO2 05/28/19 15:48 96 Room Air 05/28/19 03:59 98.0 93 18 106/86 (93) 2.0 98.0 Physical Exam Hip alejandra dressing clean dry intact no surrounding redness or erythema leg lengths are equal distal neurovascular status intact Labs Laboratory Tests Test 05/27/19 07:06 05/28/19 06:05 Hemoglobin 9.2 g/dL (12.0-15.5) 9.1 g/dL (12.0-15.5) Hematocrit 28.0 % (36.0-47.0) 27.4 % (36.0-47.0) Mean Corpuscular Hemoglobin Concent 33 g/dL (31-37) 33 g/dL (31-37) Prothrombin Time 16.9 SEC (11.7-14.0) 16.2 SEC (11.7-14.0) Prothromb Time International Ratio 1.4 (0.8-1.1) 1.3 (0.8-1.1) Laboratory Tests Test 05/28/19 06:05 Hemoglobin 9.1 g/dL (12.0-15.5) Hematocrit 27.4 % (36.0-47.0) Mean Corpuscular Hemoglobin Concent 33 g/dL (31-37) Prothrombin Time 16.2 SEC (11.7-14.0) Prothromb Time International Ratio 1.3 (0.8-1.1) Assessment Assessment POD# 3, total hip arthroplasty Plan Plan of Care [place] rehabilitation placement is being arranged per social work today Continue physical therapy with standard total hip precautions weightbearing as tolerated, Coumadin anticoagulation OSCAR WADE MD May 28, 2019 16:21
--- NOTE | 2019-05-28 16:24 | PDOC ---
PROGRESS NOTES Subjective Subjective Problems overnight: Getting around a little bit better but still needing assistance, pain still an issue according to her currently managed at her preoperative chronic pain regimen. No word received back from social work or [facility] rehabilitation on her insurance approval/acceptance Objective Vital Signs Vital Signs Date Time Temp Pulse Resp B/P (MAP) Pulse Ox O2 Delivery O2 Flow Rate FiO2 05/28/19 15:48 96 Room Air 05/28/19 03:59 98.0 93 18 106/86 (93) 2.0 98.0 Physical Exam Caitlin dressing intact leg lengths equal distal neurovascular status intact gait very antalgic needing assistance with walker Labs Laboratory Tests Test 05/27/19 07:06 05/28/19 06:05 Hemoglobin 9.2 g/dL (12.0-15.5) 9.1 g/dL (12.0-15.5) Hematocrit 28.0 % (36.0-47.0) 27.4 % (36.0-47.0) Mean Corpuscular Hemoglobin Concent 33 g/dL (31-37) 33 g/dL (31-37) Prothrombin Time 16.9 SEC (11.7-14.0) 16.2 SEC (11.7-14.0) Prothromb Time International Ratio 1.4 (0.8-1.1) 1.3 (0.8-1.1) Laboratory Tests Test 05/28/19 06:05 Hemoglobin 9.1 g/dL (12.0-15.5) Hematocrit 27.4 % (36.0-47.0) Mean Corpuscular Hemoglobin Concent 33 g/dL (31-37) Prothrombin Time 16.2 SEC (11.7-14.0) Prothromb Time International Ratio 1.3 (0.8-1.1) Assessment Assessment POD# 4, right total hip arthroplasty Plan Plan of Care From an orthopedic standpoint she continues stable and mild progression with physical therapy. It was felt that she required inpatient rehabilitation due to her ongoing need for assistance. Her nurse called today to the [facility] rehabilitation contact who was supposed to be working as her transfer was pending insurance approval as of yesterday per social director communication and progress notes Continue physical therapy weightbearing as tolerated standard total hip precautions, Coumadin anticoagulation per pharmacy Placement pending insurance approval OSCAR WADE MD May 28, 2019 16:24
[2019-05-28 19:00] VITALS: BP 117/68
[2019-05-28] MEDS: BISACODYL 5 MG TABLET.DR. PO PRN (22:29)
[2019-05-28] MEDS: ZOLPIDEM 5 MG TABLET. PO PRN (22:29)
[2019-05-28 23:00] VITALS: BP 104/55
[2019-05-29 02:55] VITALS: BP 106/61
[2019-05-29] MEDS: ACETAMINOPHEN 500 MG TABLET PO SCH ×4 (03:00→21:00)
[2019-05-29] MEDS: oxyCODONE/APAP 10/325 1 TAB TABLET PO PRN ×6 (03:12→23:27)
[2019-05-29] MEDS: traMADol 50 MG TABLET PO SCH ×4 (06:21→18:38)
[2019-05-29] MEDS: GABAPENTIN 100 MG CAPSULE. PO SCH ×3 (06:21→23:27)
[2019-05-29] MEDS: PANTOPRAZOLE 40 MG TABLET.DR. PO SCH ×2 (06:21→16:46)
[2019-05-29 07:00] VITALS: BP 125/67
[2019-05-29 07:13] LABS: PROTHROMBIN TIME PATIENT 17.8 SEC (11.7-14.0)
[2019-05-29] MEDS: SENNOSIDES/DOCUSATE 8.6/50MG TABLET. PO SCH (08:45)
[2019-05-29] MEDS: MULTIVITAMIN with MINERAL TABLET. PO SCH (08:46)
[2019-05-29] MEDS: DICYCLOMINE HCL 10 MG CAPSULE PO SCH ×4 (08:46→23:28)
[2019-05-29] MEDS: ZINC SULFATE 220 MG CAPSULE. PO SCH ×2 (08:46→23:28)
[2019-05-29] MEDS: FERROUS SULFATE 325 MG TABLET. PO SCH ×2 (08:46→16:46)
[2019-05-29] MEDS: MAGNESIUM OXIDE 400 MG TABLET PO SCH ×2 (08:46→23:28)
[2019-05-29] MEDS: CHOLECALCIFEROL (VITAMIN D3) 1,000 UNIT TABLET PO SCH ×2 (08:47→23:28)
[2019-05-29] MEDS: tiZANidine 4 MG TABLET. PO SCH ×2 (08:47→23:28)
[2019-05-29] MEDS: FUROSEMIDE 40 MG TABLET. PO SCH (09:00)
[2019-05-29 11:00] VITALS: BP 115/70
--- NOTE | 2019-05-29 14:43 | NUR ---
Pharmacy Warfarin Dosing Note S: Pharmacy consulted to assist with anticoagulation therapy started 05/24/19 O: BINDU HAMPTON is a 59 year old F with BEATRIZ LABS: Last INR: 1.5 Last HGB: 9.1 Last HCT: 27.4 Last PLT: 244 Last dose of 6 mg given on 05/28/19 at 1429 Vitamin K given: N A:INR of 1.5 is below desired range. Target range for this patient is: 1.6 - 2.5 P: Warfarin dose: 5 mg Today at 1600 Bridge Therapy: None Next INR due tomorrow Pharmacy anticoagulation service will continue to follow. Kerrie Glass RPH, 05/29/19 [id number]
[2019-05-29 14:53] VITALS: BP 116/60
[2019-05-29] MEDS ORDERED: WARFARIN 5 MG TABLET. PO ONE (16:00)
[2019-05-29 19:00] VITALS: BP 98/54
[2019-05-29 23:00] VITALS: BP 131/76
[2019-05-29] MEDS: ZOLPIDEM 5 MG TABLET. PO PRN (23:27)
[2019-05-29] MEDS: BISACODYL 5 MG TABLET.DR. PO PRN (23:27)
[2019-05-30] MEDS: ACETAMINOPHEN 500 MG TABLET PO SCH ×4 (03:00→20:46)
[2019-05-30 03:06] VITALS: BP 98/50
[2019-05-30] MEDS: oxyCODONE/APAP 10/325 1 TAB TABLET PO PRN ×5 (04:12→20:45)
[2019-05-30 04:58] LABS: PROTHROMBIN TIME PATIENT 19.5 SEC (11.7-14.0)
[2019-05-30] MEDS: GABAPENTIN 100 MG CAPSULE. PO SCH ×3 (06:14→20:46)
[2019-05-30] MEDS: PANTOPRAZOLE 40 MG TABLET.DR. PO SCH ×2 (06:14→16:55)
[2019-05-30] MEDS: traMADol 50 MG TABLET PO SCH ×5 (06:15→23:32)
[2019-05-30 07:00] VITALS: BP 128/59
[2019-05-30] MEDS: CHOLECALCIFEROL (VITAMIN D3) 1,000 UNIT TABLET PO SCH ×2 (08:35→20:45)
[2019-05-30] MEDS: DICYCLOMINE HCL 10 MG CAPSULE PO SCH ×4 (08:35→20:45)
[2019-05-30] MEDS: tiZANidine 4 MG TABLET. PO SCH ×2 (08:35→20:45)
[2019-05-30] MEDS: MULTIVITAMIN with MINERAL TABLET. PO SCH (08:35)
[2019-05-30] MEDS: ZINC SULFATE 220 MG CAPSULE. PO SCH ×2 (08:35→20:46)
[2019-05-30] MEDS: FERROUS SULFATE 325 MG TABLET. PO SCH ×2 (08:35→16:56)
[2019-05-30] MEDS: MAGNESIUM OXIDE 400 MG TABLET PO SCH ×2 (08:35→20:45)
[2019-05-30] MEDS: SENNOSIDES/DOCUSATE 8.6/50MG TABLET. PO SCH (08:35)
[2019-05-30] MEDS: FUROSEMIDE 40 MG TABLET. PO SCH (08:38)
--- NOTE | 2019-05-30 08:44 | PDOC ---
ORTHO PROGRESS NOTES Vitals Vital Signs Date Time Temp Pulse Resp B/P (MAP) Pulse Ox O2 Delivery O2 Flow Rate FiO2 05/30/19 07:40 Room Air 05/30/19 07:00 98.3 85 18 128/59 (82) 96 98.3 05/29/19 11:09 2.0 Labs Laboratory Tests Test 05/29/19 06:32 05/30/19 04:35 Prothrombin Time 17.8 SEC (11.7-14.0) 19.5 SEC (11.7-14.0) Prothromb Time International Ratio 1.5 (0.8-1.1) 1.7 (0.8-1.1) Laboratory Tests Test 05/30/19 04:35 Prothrombin Time 19.5 SEC (11.7-14.0) Prothromb Time International Ratio 1.7 (0.8-1.1) Notes awake and alert with continued pain. Assessment and Plan Problems resolving slowly with pain reported distal to the incision. neurovascular intact distally RN in contact with [facility] for transfer possibly today dressing dry and intact continue PT EMMA PEREZ APRN May 30, 2019 08:44
[2019-05-30 11:00] VITALS: BP 94/43
--- NOTE | 2019-05-30 11:35 | NUR ---
SS following up with discharge planning. Case followed by communications planner, Naila Ortiz. Pt accepted at [facility], ; fax [phone], and is currently pending authorization from insurance. master planner phoned and faxed clinical updates to [facility] and is awaiting insurance determination. SS will continue to follow for discharge planning.
[2019-05-30] MEDS: oxyCODONE IR 5 MG TABLET PO PRN (13:59)
[2019-05-30 15:00] VITALS: BP 114/71
[2019-05-30] MEDS: MORPHINE SULFATE 2 MG/ML VIAL. IV PRN (15:38)
--- NOTE | 2019-05-30 15:43 | NUR ---
Pt. c/o increased pain to posterior side of R lower leg. Pt. states it is on the inside of her leg. Dr. Vasiliy weaver.
--- NOTE | 2019-05-30 16:31 | NUR ---
Pharmacy Warfarin Dosing Note S:Pharmacy consulted to assist with anticoagulation therapy started 05/24/19 with target INR: 1.6 - 2.5 O:BINDU HAMPTON is a 59 year old F with BEATRIZ LABS: Last INR: 1.5 Last HGB: 9.1 Last HCT: 27.4 Last PLT: 244 Last dose of 5 mg given on 05/29/19 at 1647 Previous Regimen: Vitamin K given: N Drug Interaction Changes: None Ongoing Drug Interactions: A:INR of 1.7 is below desired range. Target range for this patient is: 1.6 - 2.5 P: Warfarin dose: 6 mg Daily Bridge Therapy: None Next HGB due IN AM Pharmacy anticoagulation service will continue to follow. NASIMA TORRES, [facility], 05/30/19 [id number]
[2019-05-30] MEDS: WARFARIN 3 MG TABLET. PO SCH (16:56)
--- NOTE | 2019-05-30 18:53 | PDOC ---
PROGRESS NOTES Subjective Subjective Problems overnight: Oxana reports having done much better yesterday in physical therapy walking around much of the floor however today she has severe pain down the posterior aspect of her right leg and is having a lot more difficulty with ambulation and transfers Objective Vital Signs Vital Signs Date Time Temp Pulse Resp B/P (MAP) Pulse Ox O2 Delivery O2 Flow Rate FiO2 05/30/19 18:18 Room Air 05/30/19 15:00 98.0 87 18 114/71 (85) 98 98.0 05/29/19 11:09 2.0 Physical Exam On examination her alejandra dressing is intact leg lengths are equal distal neurovascular status intact she does have significant tightness of the biceps femoris along its course and some bruising posterior lateral aspect of her leg as expected post surgery Labs Laboratory Tests Test 05/29/19 06:32 05/30/19 04:35 Prothrombin Time 17.8 SEC (11.7-14.0) 19.5 SEC (11.7-14.0) Prothromb Time International Ratio 1.5 (0.8-1.1) 1.7 (0.8-1.1) Laboratory Tests Test 05/30/19 04:35 Prothrombin Time 19.5 SEC (11.7-14.0) Prothromb Time International Ratio 1.7 (0.8-1.1) Assessment Assessment POD# right total hip arthroplasty, severe right hamstring tenderness today Plan Plan of Care I went over with her that she has significant right hamstring spasm and I'm g oing to start her on some muscle relaxant to help that in addition to some ongoing physical therapy and she is also pending placement at a rehabilitation facility pending insurance approval. Continue weightbearing as tolerated standard total hip precautions OSCAR WADE MD May 30, 2019 18:52
[2019-05-30 19:56] VITALS: BP 112/61
--- NOTE | 2019-05-30 20:49 | NUR ---
Gabapentin given at this time per Patient request, Tylenol held as Patient doesn't want with Percocet.
[2019-05-30] MEDS: CYCLOBENZAPRINE 10 MG TABLET. PO PRN (23:31)
[2019-05-30 23:33] VITALS: BP 128/63
[2019-05-30] MEDS: ZOLPIDEM 5 MG TABLET. PO PRN (23:36)
[2019-05-31] MEDS: ACETAMINOPHEN 500 MG TABLET PO SCH ×3 (03:13→14:08)
[2019-05-31 04:11] VITALS: BP 98/64
[2019-05-31] MEDS: oxyCODONE/APAP 10/325 1 TAB TABLET PO PRN ×3 (05:56→14:56)
[2019-05-31] MEDS: GABAPENTIN 100 MG CAPSULE. PO SCH ×2 (05:56→14:08)
[2019-05-31] MEDS: traMADol 50 MG TABLET PO SCH ×2 (05:57→12:00)
[2019-05-31] MEDS: CYCLOBENZAPRINE 10 MG TABLET. PO PRN ×2 (05:57→16:04)
[2019-05-31] MEDS: MORPHINE SULFATE 2 MG/ML VIAL. IV PRN (06:26)
[2019-05-31 07:00] VITALS: BP 125/50
[2019-05-31 08:22] LABS: PROTHROMBIN TIME PATIENT 19.4 SEC (11.7-14.0)
[2019-05-31] MEDS: MAGNESIUM OXIDE 400 MG TABLET PO SCH (08:37)
[2019-05-31] MEDS: SENNOSIDES/DOCUSATE 8.6/50MG TABLET. PO SCH (08:37)
[2019-05-31] MEDS: CHOLECALCIFEROL (VITAMIN D3) 1,000 UNIT TABLET PO SCH (08:37)
[2019-05-31] MEDS: PANTOPRAZOLE 40 MG TABLET.DR. PO SCH ×2 (08:37→16:04)
[2019-05-31] MEDS: MULTIVITAMIN with MINERAL TABLET. PO SCH (08:37)
[2019-05-31] MEDS: tiZANidine 4 MG TABLET. PO SCH (08:37)
[2019-05-31] MEDS: FERROUS SULFATE 325 MG TABLET. PO SCH ×2 (08:37→16:04)
[2019-05-31] MEDS: FUROSEMIDE 40 MG TABLET. PO SCH (08:38)
[2019-05-31] MEDS: DICYCLOMINE HCL 10 MG CAPSULE PO SCH ×3 (08:38→16:04)
[2019-05-31] MEDS: ZINC SULFATE 220 MG CAPSULE. PO SCH (08:41)
--- NOTE | 2019-05-31 10:50 | SNU/HH DC ---
DISCHARGE ORDERS DISCHARGE INFORMATION: DISCHARGE DATE: May 31, 2019 FINAL DIAGNOSIS Problems Medical Problems: (1) Degenerative joint disease of right hip Status: Acute (2) Right hip pain Status: Acute CONDITION ON DISCHARGE: Stable CODE STATUS: Code Status: Full CORRECTION: SNF STAY <30 DAYS: Yes POST DISCHARGE ORDERS: ACTIVITY ORDERS: Progressive ambulation (weightbearing as tolerated with standard total hip precautions on right leg) WEIGHT BEARING STATUS: Full weight bearing, As tolerated BATHING ORDERS: Shower-keep dressing dry, No Tub Bath until see DIET AFTER DISCHARGE: ADA WOUND/INCISION CARE: Ice to area for comfort, Do not change dressing (keep humble dressing intact make cut and tape over suction when unit quits one week postoperatively) OTHER WOUND INSTRUCTIONS: DO NOT CHANGE HUMBLE DRESSING. It is to remain in place till F/U appt CHECKS AFTER DISCHARGE: CHECKS AFTER DISCHARGE: Check blood press - daily, Check your Temp as needed FOLLOW-UP: ADDITIONAL FOLLOW-UP: Dr Amanda on 06/06/19 at 0945. ANTICOAGULATION F/U NEEDED: Every Thursday for 6 weeks have PT/INR drawn; Additional Instructions: Coumadin is to be administered dosage per pharmacy anticoagulation clinic TREATMENT/EQUIPMENT ORDERS: ADAPTIVE EQUIPMENT NEEDED: None Physical Therapy For: Evalulation/Treatment Occupational Therapy For: Evaluation/Treatment DISCHARGE MEDICATIONS: Home Meds Reported Medications Ferrous Sulfate (FERROUS SULFATE) 325 Mg Tablet, 65 MG PO BIDAC for SUPPLEMENT, TAB 05/11/19 Acetaminophen (ACETAMINOPHEN) 500 Mg Tablet, 500 MG PO QID for PAIN CONTROL, TAB 05/11/19 Esomeprazole Magnesium (NEXIUM CAPSULE) 40 Mg Capsule., 40 MG PO BID for CONTROL REFLUX, #30 CAP 0 Refills 05/11/19 Etodolac (ETODOLAC) 400 Mg Tablet, 400 MG PO PRN DAILY PRN for PAIN CONTROL, TAB 05/11/19 Multivits-Min/Fa/Lycopene/Lut (CENTRUM SILVER TABLET) 1 Each Tablet, 1 EACH PO BID for SUPPLEMENT, TAB 05/11/19 Potassium Gluconate (POTASSIUM GLUCONATE) 500 Mg Tablet, 595 MG PO BID for SUPPLEMENT, TAB 05/11/19 Cholecalciferol (Vitamin D3) (VITAMIN D3) 1,000 Unit Tablet, 125 MCG PO BID for SUPPLEMENT, TAB 05/11/19 Zinc Amino Acid Chelate (ZINC) 50 Mg Tablet, 50 MG PO BID for SUPPLEMENT, TAB 05/11/19 Magnesium Oxide (MAGNESIUM) 400 Mg Capsule, 500 MG PO BID for SUPPLEMENT, CAP 05/11/19 Magnesium Oxide (MAGNESIUM OXIDE) 250 Mg Tablet, 250 MG PO DAILY for SUPPLEMENT, TAB 05/11/19 Dicyclomine Hcl (DICYCLOMINE HCL) 10 Mg Capsule, 10 MG PO QID for STOMACH CRAMPS, CAP 05/11/19 Ibuprofen (IBUPROFEN) 800 Mg Tablet, 800 MG PO PRN Q6HRS PRN for INFLAMMATION, TAB 05/06/19 Furosemide (FUROSEMIDE) 40 Mg Tablet, 1 TAB PO DAILY for diuretic, #30 TAB 5 Refills 06/29/18 Tizanidine Hcl (TIZANIDINE HCL) 4 Mg Tablet, 1 TAB PO BID, #30 TAB 10/16/15 Oxycodone/Apap 10-325 (PERCOCET 10-325 MG TABLET ) 1 Each Tablet, 1 EACH PO 10/28/13 OSCAR AMANDA MD May 31, 2019 10:50
[2019-05-31 11:00] VITALS: BP 128/52
--- NOTE | 2019-05-31 13:41 | NUR ---
Pharmacy Warfarin Dosing Note S:Pharmacy consulted to assist with anticoagulation therapy started 05/24/19 with target INR: 1.6 - 2.5 O:BINDU HAMPTON is a 59 year old F with a BEATRIZ Allergies:Metronidazole HCl (From Flagyl) ciprofloxacin HCl (From Cipro ) Iodinated Contrast Media hydrocortisone (From Cipro ) metronidazole (From Flagyl) Height: 5 feet, 2 inches Weight: 110.2 kg LABS: Last INR: 1.7 Last HGB: 9.1 Last HCT: 27.4 Last PLT: 244 Ongoing Drug Interactions: A:INR within desired Range. Target Range for this patient is: 1.6 - 2.5 P: Warfarin dose: 6 mg will be given today prior to discharge. Give 6 mg daily. Draw INR on 06/06/19, and request attending physician to dose warfarin for a goal INR 1.6 - 2.5 through end of therapy 07/04/19 (6 weeks of therapy). Indication for warfarin is prevention of VTE after major joint surgery. SHARDA FROST [facility], 05/31/19 1810
--- NOTE | 2019-05-31 14:46 | DS ---
DATE OF DISCHARGE: 05/31/2019 ORTHOPEDIC DISCHARGE SUMMARY DISPOSITION: alf facility, [facility]. PRINCIPAL DIAGNOSIS: Degenerative joint disease, right hip. PROCEDURE: Right total hip arthroplasty. DISPOSITION MEDICATIONS: Include Percocet 10/325 p.o. q. 4 hours as needed which she was taking at home. Coumadin as directed by anticoagulation clinic. Cyclobenzaprine 10 mg p.o. t.i.d. p.r.n. spasm and resume other preoperative medications aside from anti-inflammatories, which have been discontinued. ACTIVITY: Weightbearing as tolerated, standard total hip precautions on the right. Maintain HUMBLE dressing. Follow up with Dr. Amanda 2 weeks postoperatively. BRIEF DESCRIPTION OF HOSPITAL COURSE: The patient underwent an uncomplicated right total hip arthroplasty, had fairly severe postoperative pain on postoperative day #2. Originally, she was on a little bit less than her preoperative regimen, which included Percocet 10/325 every 4 hours, although she did indicate that her pain was less than what it had been preoperatively. She had significant difficulty with physical therapy and inability to safely transfer and ambulate without significant assistance and therefore, plans were initiated on postop day #3 to undergo transfer to a long-term facility, but insurance approval was not obtained. She continued physical therapy through the weekend and no contact was received from the facility regarding insurance approval despite multiple attempts. The patient improved in terms of her ambulation on the next 2 days, postoperative days #4 and #5, Thursday and Thursday. On Thursday she was actually walking around quite well, but on Thursday morning woke up and was in severe pain and had tightness in her hamstrings on the posterior right leg, I started on some cyclobenzaprine at that time. She continued with some physical therapy and indicates that she is off and on had difficulties with the hamstring area pain, which continues to be quite limiting for her. She was otherwise medically stable and given her insurance approval now for discharge to the rehabilitation facility is discharged in stable condition. OSCAR AMANDA MD DR: RICHELLE/keya JOB#: [id number] / [id number] JENNIFER Snyder MD
--- NOTE | 2019-05-31 14:57 | NUR ---
Caitlin benjamin batter pack detached.
[2019-05-31 15:00] VITALS: BP 132/60
[2019-05-31] MEDS: WARFARIN 3 MG TABLET. PO SCH (16:04)
--- NOTE | 2019-05-31 16:13 | NUR ---
Pt. transferred to [facility] via per transporation service, family with pt.
== END 2019-05-31 16:15 | DRG 470 ==
LOC: OPSVCIP 06:25 → 4 SOUTHEST 12:28 → 4 NORTH 05-27 17:13
PROVIDERS: ADMIT Orthopaedic Surgery; ATTEND Orthopaedic Surgery
PROC: 0SR906Z Replacement of Right Hip Joint with Oxidized Zirconium on Polyethylene Synthetic Substitute, Open Approach (ICD-10-PCS; principal; 2019-05-24 07:30)
DX: M16.11 Unilateral primary osteoarthritis, right hip (principal); J45.909 Unspecified asthma, uncomplicated; G89.18 Other acute postprocedural pain; Z96.653 Presence of artificial knee joint, bilateral; Z90.710 Acquired absence of both cervix and uterus; Z88.8 Allergy status to other drugs, medicaments and biological substances; Z91.041 Radiographic dye allergy status; Z90.49 Acquired absence of other specified parts of digestive tract; Z98.51 Tubal ligation status
CPT/HCPCS: 36415; 73502; 85014; 85018; 85027; 85610; 85730; 86850; 86900; 86901; 88304; 88311; 90471; 90686; A7015; C1713; J0171; J0690; J0780; J1100; J1170; J1885; J2001; J2250; J2270; J2405; J2704; J2710; J2795; J3010; J3490; J7030; J7120; Q0162; 97110; 97116; 97150; 97530; 97535; G0378

== ENCOUNTER → 2019-07-04 | Outpatient (CLI) | payer BC, OTHER ==
[~2019-07-04] MED LIST changes: -ACETAMINOPHEN 500 MG TABLET PO PRN; +BIOT1CAP3 PO; +CEPH500C PO; -GABAPENTIN 300 MG CAPSULE. PO ONE; -MELOXICAM 7.5 MG TABLET PO PRN; -MORPHINE SULFATE 5 MG, KETOROLAC 30MG VIAL 30 MG, ROPIVacaine 0.5% PF 60 ML, EPINEPHrin... INT ART ONE; +OMEP40CA45 PO; -TRANEXAMIC ACID 1,000 MG in IV NS 50ML -- 1ST BAG INJ ONE; +WARF-78 PO; -ceFAZolin SODIUM 3 GM in IV DEXTROSE 5% 100ML 100 ML IV PRN
[2019-07-04 11:38] LABS: BASO % 0 % (0-3); EOS # 0.1 x10^3/uL (0.0-0.7); EOS % 1 % (0-3); HEMATOCRIT 32.8 % (36.0-47.0); HEMOGLOBIN 10.9 g/dL (12.0-15.5); LYMPH # 1.5 x10^3/uL (1.0-4.8); LYMPH % 22 % (24-48); MEAN CORPUSCULAR HEMOGLOBIN 30 pg (25-35); MEAN CORPUSCULAR HGB CONC 33 g/dL (31-37); MEAN CORPUSCULAR VOLUME 90 fL (79-100); MONO # 0.4 x10^3/uL (0.0-1.1); MONO % 6 % (0-9); NEUT # 4.9 x10^3/uL (1.8-7.7); NEUT % 71 % (31-73); PLATELET COUNT 359 x10^3/uL (140-400); RED BLOOD COUNT 3.64 x10^6/uL (3.50-5.40); RED CELL DISTRIBUTION WIDTH 13.1 % (11.5-14.5); WHITE BLOOD COUNT 6.9 x10^3/uL (4.0-11.0)
[2019-07-04 11:45] LABS: PROTHROMBIN TIME PATIENT 30.3 SEC (11.7-14.0)
== END | disposition home or self-care (01) ==
LOC: LAB 11:05
PROVIDERS: ATTEND Physician Assistant
DX: Z98.890 Other specified postprocedural states (principal)
CPT/HCPCS: 36415; 85025; 85610; 85651; 86141

== ENCOUNTER 2019-07-05 08:51 | Inpatient (IN) | payer BC, OTHER ==
[2019-07-05] VITALS (11 sets, daily range): BP systolic 109–131; BP diastolic 58–86
[~2019-07-05] VITALS: Ht 157.5 cm; Wt 117.0 kg
[~2019-07-05 08:51] MED LIST changes: -CEPH500C PO; +IV RINGERS,LACTATED 1000ML 1,000 ML IV SCH; +LIDOCAINE 1% PF 2 ML VIAL. ID PRN; +LIDOCAINE 2% PF 5 ML VIAL. ONE; +MORPHINE SULFATE 2 MG/ML VIAL. IV PRN; +ONDANSETRON PF 4 MG/2 ML VIAL. IV PRN; +PROCHLORPERAZINE 10 MG/2 ML VIAL. IV PRN; +PROPOFOL 20 ML IV ONE; +fentaNYL PF VIAL 100 MCG/2 ML VIAL IV PRN; +fentaNYL PF VIAL 100 MCG/2 ML VIAL ONE
[2019-07-05] MEDS ORDERED: CEPH500C PO (09:27)
--- NOTE | 2019-07-05 09:36 | NUR ---
PT HERE IN [facility] FOR I&D RIGHT HIP. PT STOPPED COUMADIN FOR ONE DAY PRIOR TO SURGERY, INR DRAWN 07/04/2019 [address] TO BE 2.9. DR WADE NOTIFIED AND IS AWARE OF INR RESULTS AND TO CONTINUE WITH PLAN OF CARE.
[2019-07-05 09:46] LABS: BASO % 1 % (0-3); EOS # 0.1 x10^3/uL (0.0-0.7); EOS % 2 % (0-3); HEMATOCRIT 33.9 % (36.0-47.0); HEMOGLOBIN 11.1 g/dL (12.0-15.5); LYMPH # 1.3 x10^3/uL (1.0-4.8); LYMPH % 23 % (24-48); MEAN CORPUSCULAR HEMOGLOBIN 30 pg (25-35); MEAN CORPUSCULAR HGB CONC 33 g/dL (31-37); MEAN CORPUSCULAR VOLUME 91 fL (79-100); MONO # 0.3 x10^3/uL (0.0-1.1); MONO % 6 % (0-9); NEUT # 3.8 x10^3/uL (1.8-7.7); NEUT % 68 % (31-73); PLATELET COUNT 328 x10^3/uL (140-400); RED BLOOD COUNT 3.72 x10^6/uL (3.50-5.40); RED CELL DISTRIBUTION WIDTH 13.1 % (11.5-14.5); WHITE BLOOD COUNT 5.5 x10^3/uL (4.0-11.0)
[2019-07-05] MEDS ORDERED: DEXAMETHASONE SOD PHOS 20 MG/5 ML VIAL. ONE (10:54)
[2019-07-05] MEDS ORDERED: SEVOFLURANE 16 TO 30 MINUTES. IH ONE (10:55)
[2019-07-05] MEDS ORDERED: ONDANSETRON PF 4 MG/2 ML VIAL. ONE (10:55)
[2019-07-05] MEDS ORDERED: VANCOMYCIN 1GM IVPB FOR OMNI 250 ML IV ONE (11:15)
[2019-07-05] MEDS ORDERED: fentaNYL PF VIAL 100 MCG/2 ML VIAL ONE (12:33)
[2019-07-05] MEDS ORDERED: HYDROcodone/APAP 10/325 1 TAB TABLET PO ONE (12:45)
[2019-07-05] MEDS: fentaNYL PF VIAL 100 MCG/2 ML VIAL IV PRN ×2 (12:45→12:50)
[2019-07-05] MEDS ORDERED: HYDROmorphone 2 MG/ML VIAL ONE (12:54)
[2019-07-05] MEDS: HYDROmorphone 2 MG/ML VIAL IV PRN ×5 (12:57→13:55)
--- NOTE | 2019-07-05 12:57 | SNU/HH DC ---
DISCHARGE WITH HOME HEALTH DISCHARGE INFORMATION: Discharge Date: Jul 06, 2019 Final Diagnosis: Status post irrigation debridement of superficial hip wound drainage with wound VAC Condition on Discharge: Stable CODE STATUS: Code Status: Full HOME HEALTH: Face to Face: I certify this patient is under my care and that I, or a nurse practitioner or physician's sound assistant working with me, had a face to face encounter that meets the physician face to face encounter requirements with this patient on [07/05/2019]. Medical Complications: S/P Joint Replacement RN For Eval/Treatment: Yes Pt Meets Homebound Status: Limited distance walking POST DISCHARGE ORDERS: Activity Instructions for Disc: Progressive ambulation Weight Bearing Status after Di: As tolerated Bathing Instructions: Shower-keep dressing dry DIET AFTER DISCHARGE: ADA Wound/Incision Care: Ice to area for comfort, Do not change dressing (keep wound VAC dressing intact otherwise in between scheduled changes by correction wound care) Other wound/incision instructi: correction for wound care with wound VAC changes M,W,F ongoing CHECKS AFTER DISCHARGE: Checks after discharge: Check your Temp as needed FOLLOW-UP: Follow up with: Dr. Amanda 2 weeks Warfarin Follow UP: TAD Warfarin Additional Instructions: [facility] health care fax number [phone], Current provide her nurse is Loni [phone], Patient is to be discharged to a family member's home and home health care will need to be notified accordingly TREATMENT/EQUIPMENT ORDERS: Adaptive Equipment Issued: Walker (already has at home) CERTIFICATION STATEMENT: Certification Statement: Certification Statement: Based on the above finding, I certify that this patient is confined to the home and needs intermittent correction care, physical therapy and/or speech therapy, or continues to need occupational therapy.~ This patient is under my care, and I have initiated the establishment of the plan of care.~ This patient will be followed by myself or a community physician who will periodically review the plan of care. Home Meds Reported Medications Cephalexin (CEPHALEXIN) 500 Mg Capsule, 1 CAP PO TID for INFECTION, #30 CAP 07/05/19 Warfarin Sodium (COUMADIN) 5 Mg Tablet, 5 MG PO DAILY for PREVENT BLOOD CLOTS, #30 TAB 07/04/19 Biotin (BIOTIN) 1 Mg Capsule, 1 MG PO DAILY for FOR HAIR SKIN AND NAILS, CAP 07/04/19 Omeprazole (OMEPRAZOLE) 40 Mg Capsule.dr, 40 MG PO DAILY for CONTROL REGLUX, CAP 07/04/19 Ferrous Sulfate (FERROUS SULFATE) 325 Mg Tablet, 65 MG PO BIDAC for SUPPLEMENT, TAB 05/11/19 Acetaminophen (ACETAMINOPHEN) 500 Mg Tablet, 500 MG PO QID for PAIN CONTROL, TAB 05/11/19 Etodolac (ETODOLAC) 400 Mg Tablet, 400 MG PO PRN DAILY PRN for PAIN CONTROL, TAB 05/11/19 Multivits-Min/Fa/Lycopene/Lut (CENTRUM SILVER TABLET) 1 Each Tablet, 1 EACH PO BID for SUPPLEMENT, TAB 05/11/19 Potassium Gluconate (POTASSIUM GLUCONATE) 500 Mg Tablet, 595 MG PO BID for SUPPLEMENT, TAB 05/11/19 Cholecalciferol (Vitamin D3) (VITAMIN D3) 1,000 Unit Tablet, 125 MCG PO BID for SUPPLEMENT, TAB 05/11/19 Zinc Amino Acid Chelate (ZINC) 50 Mg Tablet, 50 MG PO BID for SUPPLEMENT, TAB 05/11/19 Magnesium Oxide (MAGNESIUM) 400 Mg Capsule, 500 MG PO BID for SUPPLEMENT, CAP 05/11/19 Magnesium Oxide (MAGNESIUM OXIDE) 250 Mg Tablet, 250 MG PO DAILY for SUPPLEMENT, TAB 05/11/19 Dicyclomine Hcl (DICYCLOMINE HCL) 10 Mg Capsule, 10 MG PO QID for STOMACH CRAMPS, CAP 05/11/19 Tizanidine Hcl (TIZANIDINE HCL) 4 Mg Tablet, 1 TAB PO BID, #30 TAB 10/16/15 Oxycodone/Apap 10-325 (PERCOCET 10-325 MG TABLET ) 1 Each Tablet, 1 EACH PO 10/28/13 Discontinued Reported Medications Esomeprazole Magnesium (NEXIUM CAPSULE) 40 Mg Capsule.dr, 40 MG PO BID for CONTROL REFLUX, #30 CAP 0 Refills 05/11/19 Ibuprofen (IBUPROFEN) 800 Mg Tablet, 800 MG PO PRN Q6HRS PRN for INFLAMMATION, TAB 05/06/19 Furosemide (FUROSEMIDE) 40 Mg Tablet, 1 TAB PO DAILY for diuretic, #30 TAB 5 Refills 06/29/18 OSCAR AMANDA MD Jul 05, 2019 12:57
[2019-07-05] MEDS ORDERED: IV NORMAL SALINE 1000ML BAG 1,000 ML IV SCH (13:01)
--- NOTE | 2019-07-05 13:11 | PDOC4 ---
Operative Note Operative Note Date of surgery: 07/05/2019 Preoperative diagnosis: Right hip wound drainage status post right total hip arthroplasty Postoperative diagnosis: Wound involvement is superficial to fascia in the area where her pannus folds down over the wound Operative procedure: Irrigation debridement right superficial hip wound with w ound VAC placement Surgeon: Vasiliy Anesthesia: Gen. Estimated blood loss: 15 mL Complications: None Intraoperative cultures sent for aerobic anaerobic and acid-fast and fungal cultures Operative indications: Oxana was seen in the clinic yesterday about 6 weeks following total hip arthroplasty. She was seen 2 weeks postoperatively and had some slight serous drainage but apparently continued to have unreported ongoing drainage despite an inpatient rehabilitation stay and now presents for her scheduled follow-up and has an open wound that probes down about 4 cm and is about 7 mm diameter with persistent serous drainage there is no surrounding redness or erythema but she does have a large pannus that drapes over her hip wound and put stress right in the area where this is opened and draining. Laboratory studies were sent in the clinic yesterday and I went over with her my recommendation of opening up and exploring the wound and treating it appropriately likely if it is superficial with a wound VAC to help the healing especially in the at risk area that she has the wound and potentially more drastic treatment if it communicates deeper to the hip implant. She was against having a hospital stay at her clinic visit and therefore some home health was arranged and wound VAC approval was obtained. She agrees to proceed with surgical evaluation and treatment. Operative text: Patient was identified procedure verified patient placed in the supine position on the operating table. After adequate amounts of general ane sthesia were administered she was placed decubitus right side up stabilized by the Stulberg hip positioner and all bony prominences were padded. The right hip was then prepped and draped in standard sterile fashion and after timeout was performed patient procedure identified and verified and incision was made along the previous healed wound superiorly to expose the undermined tissue under the skin and upper subcutaneous layer where fluid had collected. Deep cultures were obtained with a swab at this time and thorough probing revealed the underlying fascia to be intact and after sharp debridement of any wound slough with rongeurs in the subcutaneous area thorough irrigation was carried out with a total of 2 L of normal saline solution under pulse lavage. Some small stretch tears were noted in the stanchion toward the groin area which were treated with ostomy dressing and wound VAC foam was placed in the wound and the covered compromised skin was sealed well with the wound VAC dressing and obtained excellent suction. She was returned to recovery room in stable condition having tolerated the procedure well OSCAR WADE MD Jul 05, 2019 13:11
[2019-07-05] MEDS ORDERED: diphenhydrAMINE 50 MG/ML VIAL IV PRN (13:15)
[2019-07-05] MEDS ORDERED: DEXTROSE 50% 25 GM / 50ML DISP.SYRIN. IV PRN (13:15)
[2019-07-05] MEDS ORDERED: fentaNYL PF VIAL 100 MCG/2 ML VIAL IV PRN (13:15)
[2019-07-05] MEDS ORDERED: 0.9 % SODIUM CHLORIDE 10 ML DISP.SYRIN. IV PRN (13:15)
[2019-07-05] MEDS ORDERED: ZOLPIDEM 5 MG TABLET. PO PRN (13:15)
[2019-07-05] MEDS ORDERED: CALCIUM CARBONATE 500 MG TAB.CHEW PO PRN (13:15)
--- NOTE | 2019-07-05 13:17 | PDOC ---
PROGRESS NOTES Subjective Subjective Problems overnight: Originally patient was approved and scheduled for an outpatient procedure with placement of a wound VAC and home health was arranged for continued halfway care with the wound VAC however postoperatively on getting the patient up she was very painful and unable to safely ambulate requiring overnight admission Objective Vital Signs Vital Signs Date Time Temp Pulse Resp B/P (MAP) Pulse Ox O2 Delivery O2 Flow Rate FiO2 07/05/19 12:15 97.1 76 18 138/68 100 Simple Mask 10 97.1 Physical Exam Wound VAC is intact has good suction distal neurovascular status intact to the right lower extremity Labs Laboratory Tests Test 07/05/19 09:35 White Blood Count 5.5 x10^3/uL (4.0-11.0) Red Blood Count 3.72 x10^6/uL (3.50-5.40) Hemoglobin 11.1 g/dL (12.0-15.5) Hematocrit 33.9 % (36.0-47.0) Mean Corpuscular Volume 91 fL (79-100) Mean Corpuscular Hemoglobin 30 pg (25-35) Mean Corpuscular Hemoglobin Concent 33 g/dL (31-37) Red Cell Distribution Width 13.1 % (11.5-14.5) Platelet Count 328 x10^3/uL (140-400) Neutrophils (%) (Auto) 68 % (31-73) Lymphocytes (%) (Auto) 23 % (24-48) Monocytes (%) (Auto) 6 % (0-9) Eosinophils (%) (Auto) 2 % (0-3) Basophils (%) (Auto) 1 % (0-3) Neutrophils # (Auto) 3.8 x10^3/uL (1.8-7.7) Lymphocytes # (Auto) 1.3 x10^3/uL (1.0-4.8) Monocytes # (Auto) 0.3 x10^3/uL (0.0-1.1) Eosinophils # (Auto) 0.1 x10^3/uL (0.0-0.7) Basophils # (Auto) 0.0 x10^3/uL (0.0-0.2) Laboratory Tests Test 07/05/19 09:35 White Blood Count 5.5 x10^3/uL (4.0-11.0) Red Blood Count 3.72 x10^6/uL (3.50-5.40) Hemoglobin 11.1 g/dL (12.0-15.5) Hematocrit 33.9 % (36.0-47.0) Mean Corpuscular Volume 91 fL (79-100) Mean Corpuscular Hemoglobin 30 pg (25-35) Mean Corpuscular Hemoglobin Concent 33 g/dL (31-37) Red Cell Distribution Width 13.1 % (11.5-14.5) Platelet Count 328 x10^3/uL (140-400) Neutrophils (%) (Auto) 68 % (31-73) Lymphocytes (%) (Auto) 23 % (24-48) Monocytes (%) (Auto) 6 % (0-9) Eosinophils (%) (Auto) 2 % (0-3) Basophils (%) (Auto) 1 % (0-3) Neutrophils # (Auto) 3.8 x10^3/uL (1.8-7.7) Lymphocytes # (Auto) 1.3 x10^3/uL (1.0-4.8) Monocytes # (Auto) 0.3 x10^3/uL (0.0-1.1) Eosinophils # (Auto) 0.1 x10^3/uL (0.0-0.7) Basophils # (Auto) 0.0 x10^3/uL (0.0-0.2) Assessment Assessment POD# 0 irrigation debridement right hip for wound drainage with wound VAC placement Plan Plan of Care Detailed orders were dictated for [facility] health care where wound VAC and halfway orders need to be faxed at [phone], these instructions were per her previous home health nurse Letty phone number [phone] Coumadin is now discontinued She can ambulate with walker assistance weightbearing as tolerated with standard hip precautions on the right Plan discharged as soon as safely able to mobilize and good pain control likely tomorrow and home health orders were all written and detailed draft fashion currently in anticipation OSCAR WADE MD Jul 05, 2019 13:17
[2019-07-05] MEDS: oxyCODONE IR 5 MG TABLET PO PRN ×2 (13:59→18:35)
[2019-07-05] MEDS: MORPHINE SULFATE 2 MG/ML VIAL. IV PRN (15:57)
[2019-07-05] MEDS: ceFAZolin SODIUM 3 GM in IV DEXTROSE 5% 100ML 100 ML IV SCH ×2 (16:55→22:35)
[2019-07-05] MEDS: INSULIN LISPRO 300 UNITS/3 ML VIAL. SQ SCH (16:59)
[2019-07-06] MEDS: oxyCODONE IR 5 MG TABLET PO PRN ×3 (00:04→09:28)
[2019-07-06] MEDS: MORPHINE SULFATE 2 MG/ML VIAL. IV PRN (02:40)
[2019-07-06 02:49] VITALS: BP 110/64
[2019-07-06] MEDS: ceFAZolin SODIUM 3 GM in IV DEXTROSE 5% 100ML 100 ML IV SCH (04:53)
[2019-07-06] MEDS ORDERED: MAGNESIUM HYDROXIDE 2,400 MG/30 ML ORAL.SUSP. PO PRN (06:00)
[2019-07-06 07:00] VITALS: BP 142/82
[2019-07-06] MEDS: INSULIN LISPRO 300 UNITS/3 ML VIAL. SQ SCH (08:00)
--- NOTE | 2019-07-06 08:52 | PDOC ---
ORTHO PROGRESS NOTES Subjective Patient with moderate amount of pain. Post-op Day: 1 Procedure Excisional I&D of right hip wound with wound vac placement. Vitals Vital Signs Date Time Temp Pulse Resp B/P (MAP) Pulse Ox O2 Delivery O2 Flow Rate FiO2 07/06/19 07:00 97.8 63 16 142/82 (102) 98 Room Air 97.8 07/05/19 12:30 10 Labs Laboratory Tests Test 07/05/19 09:35 07/05/19 16:52 07/05/19 21:02 07/06/19 08:06 White Blood Count 5.5 x10^3/uL (4.0-11.0) Red Blood Count 3.72 x10^6/uL (3.50-5.40) Hemoglobin 11.1 g/dL (12.0-15.5) Hematocrit 33.9 % (36.0-47.0) Mean Corpuscular Volume 91 fL (79-100) Mean Corpuscular Hemoglobin 30 pg (25-35) Mean Corpuscular Hemoglobin Concent 33 g/dL (31-37) Red Cell Distribution Width 13.1 % (11.5-14.5) Platelet Count 328 x10^3/uL (140-400) Neutrophils (%) (Auto) 68 % (31-73) Lymphocytes (%) (Auto) 23 % (24-48) Monocytes (%) (Auto) 6 % (0-9) Eosinophils (%) (Auto) 2 % (0-3) Basophils (%) (Auto) 1 % (0-3) Neutrophils # (Auto) 3.8 x10^3/uL (1.8-7.7) Lymphocytes # (Auto) 1.3 x10^3/uL (1.0-4.8) Monocytes # (Auto) 0.3 x10^3/uL (0.0-1.1) Eosinophils # (Auto) 0.1 x10^3/uL (0.0-0.7) Basophils # (Auto) 0.0 x10^3/uL (0.0-0.2) Glucose (Fingerstick) 164 mg/dL (70-99) 180 mg/dL (70-99) 100 mg/dL (70-99) Laboratory Tests Test 07/05/19 09:35 07/05/19 16:52 11/26/19 21:02 07/06/19 08:06 White Blood Count 5.5 x10^3/uL (4.0-11.0) Red Blood Count 3.72 x10^6/uL (3.50-5.40) Hemoglobin 11.1 g/dL (12.0-15.5) Hematocrit 33.9 % (36.0-47.0) Mean Corpuscular Volume 91 fL (79-100) Mean Corpuscular Hemoglobin 30 pg (25-35) Mean Corpuscular Hemoglobin Concent 33 g/dL (31-37) Red Cell Distribution Width 13.1 % (11.5-14.5) Platelet Count 328 x10^3/uL (140-400) Neutrophils (%) (Auto) 68 % (31-73) Lymphocytes (%) (Auto) 23 % (24-48) Monocytes (%) (Auto) 6 % (0-9) Eosinophils (%) (Auto) 2 % (0-3) Basophils (%) (Auto) 1 % (0-3) Neutrophils # (Auto) 3.8 x10^3/uL (1.8-7.7) Lymphocytes # (Auto) 1.3 x10^3/uL (1.0-4.8) Monocytes # (Auto) 0.3 x10^3/uL (0.0-1.1) Eosinophils # (Auto) 0.1 x10^3/uL (0.0-0.7) Basophils # (Auto) 0.0 x10^3/uL (0.0-0.2) Glucose (Fingerstick) 164 mg/dL (70-99) 180 mg/dL (70-99) 100 mg/dL (70-99) Notes awake and alert Assessment and Plan POD 3 1 S/P I&D right hip wound motor and sensation intact distally calf soft and non tender wound vac in place and working Home with Dr Amanda's instructions when pain controlled and up with walker. EMMA PEREZ APRN Jul 06, 2019 08:52
--- NOTE | 2019-07-06 09:32 | NUR ---
SW following. Discussed with RN, RN advised home health had already been set up. SW spoke with Naila Ortiz (assortment planner) who is working with pt. Pt discharging home today with home health. No further SW needs.
--- NOTE | 2019-07-06 09:35 | NUR ---
Discharge instructions reviewed with patient, verbalized understanding. Peggy PEREIRA to change to portable wound vac then patient with be escorted out via wheelchair by Feli LINDSEY.
--- NOTE | 2019-07-06 09:45 | NUR ---
wound care patient switched over to home vac at this time. KATHY Villalta spoke with Dr. Amanda and patient has home health. patient will f/u with Dr. Amanda and have dressings done by . signed paperwork left in patients chart.
[2019-07-06] MEDS ORDERED: ONDANSETRON ODT 4 MG TAB.RAPDIS. PO PRN (12:00)
[2019-07-06] MEDS ORDERED: ONDANSETRON PF 4 MG/2 ML VIAL. IV PRN (12:00)
--- NOTE | 2019-07-06 19:52 | DS ---
DATE OF DISCHARGE: 07/06/2019 DISPOSITION: Home with home health. DIAGNOSIS: Right hip wound drainage, status post right total hip arthroplasty. PROCEDURE: Irrigation and debridement of right hip with superficial involvement above the fascia. DISPOSITION MEDICATIONS: Include resumption of her home medications including a prescription for Percocet 10/325 one p.o. q. 4 hours p.r.n. pain, Keflex 500 mg p.o. q.i.d. x10 days, and resume home medications except discontinue Coumadin. ACTIVITY: Weightbearing as tolerated, standard total hip precautions. Maintain wound VAC dressing, home health to change dressing Thursday, Thursday, and Thursday and home health orders were placed and her first dressing change will be on 07/08/2019. DISCHARGE INSTRUCTIONS: Follow up with Dr. Amanda in 2 weeks. BRIEF DESCRIPTION OF HOSPITAL COURSE: The patient underwent an initial planned outpatient irrigation and debridement of her right hip, was found to have superficial involvement of the skin, subcutaneous tissue, and the underlying fascia was intact. Cultures were obtained and after debridement, wound VAC was placed. She was having pain control issues and was unable to be safely gotten out of bed postoperatively, was kept overnight and was discharged on postop day #1 to home with home health in stable condition. OSCAR AMANDA MD DR: RICHELLE/keya JOB#: [id number] / [id number]
== END 2019-07-06 10:11 | disposition home health service (06) | DRG 858 ==
LOC: OPSVCIP 08:51 → 4 NORTH 13:44
PROVIDERS: ADMIT Orthopaedic Surgery; ATTEND Orthopaedic Surgery
PROC: 0JBL0ZZ Excision of Right Upper Leg Subcutaneous Tissue and Fascia, Open Approach (ICD-10-PCS; principal; 2019-07-05 09:45)
DX: T81.41XA Infection following a procedure, superficial incisional surgical site, initial encounter (principal); Z96.641 Presence of right artificial hip joint; Y83.8 Other surgical procedures as the cause of abnormal reaction of the patient, or of later complication, without mention of misadventure at the time of the procedure; Y92.89 Other specified places as the place of occurrence of the external cause
CPT/HCPCS: 36415; 82962; 85025; 87071; 87075; 87102; A7015; J0690; J1100; J1170; J1815; J2001; J2270; J2405; J2704; J3010; J3370; J7030; J7120; A4461; G0378

== ENCOUNTER → 2019-09-06 | Outpatient (CLI) | payer BC, OTHER ==
[~2019-09-06] MED LIST changes: +CEPH500C PO; +GADOTERATE 7.5 MMOL/15ML VIAL. IVP ONE; -IV RINGERS,LACTATED 1000ML 1,000 ML IV SCH; -LIDOCAINE 1% PF 2 ML VIAL. ID PRN; -LIDOCAINE 2% PF 5 ML VIAL. ONE; -MORPHINE SULFATE 2 MG/ML VIAL. IV PRN; -ONDANSETRON PF 4 MG/2 ML VIAL. IV PRN; -PROCHLORPERAZINE 10 MG/2 ML VIAL. IV PRN; -PROPOFOL 20 ML IV ONE; -fentaNYL PF VIAL 100 MCG/2 ML VIAL IV PRN; -fentaNYL PF VIAL 100 MCG/2 ML VIAL ONE
--- NOTE | 2019-09-06 14:09 | RAD ---
EXAM: MRI ABDOMEN WITH AND WITHOUT CONTRAST. HISTORY: Pancreatic mass. TECHNIQUE: MRI of the abdomen was performed before and after the intravenous administration of 24 mL Dotarem. COMPARISON: 12/26/2013. FINDINGS: Liver: Hepatic parenchymal signal loss on opposed phase images indicates mild diffuse hepatic steatosis. There is a subcentimeter cyst in hepatic segment 5/6. There are no suspicious hepatic lesions. Biliary tree: The gallbladder is surgically absent. The common duct is mildly dilated at 10 mm. There is no distal obstructing lesion. A multilobulated cystic lesion at the pancreatic tail measures 3.5 x 3.5 x 3.8 cm. This has increased from approximately 2.6 cm in 2015. There is no clear solid or enhancing internal component. Communication with a side branch duct is not clearly seen. There are no solid pancreatic parenchymal lesions. The main pancreatic duct is not dilated. Other findings: The kidneys, adrenal glands and spleen are unremarkable. IMPRESSION: 1. 3.8 x 3.5 cm cystic mass at the pancreatic tail, increased from approximately 2.6 cm in 2014. Communication with the side branch pancreatic duct is not clearly seen, but considerations include a side branch intraductal papillary mucinous neoplasm or possibly a mucinous cystadenoma. A solid or enhancing component suggestive of malignancy is not seen, but at this size, endoscopic ultrasound and possibly with fluid sampling is suggested. Ongoing follow-up/management is recommended. 2. Mild extrahepatic biliary dilatation status post cholecystectomy. Correlate for cholestasis to assess significance. 3. Mild diffuse hepatic steatosis. Electronically signed by: Leandra Prabhakar MD (09/06/2019 2:05 PM) [facility]
== END | disposition home or self-care (01) ==
LOC: MRI 10:57
PROVIDERS: ATTEND Internal Medicine
DX: K76.0 Fatty (change of) liver, not elsewhere classified (principal); K76.89 Other specified diseases of liver; K86.89 Other specified diseases of pancreas; Z90.49 Acquired absence of other specified parts of digestive tract
CPT/HCPCS: 74183; A9575

== ENCOUNTER 2020-09-02 03:19 | Emergency (ER) | payer BC, OTHER ==
[~2020-09-02] VITALS: Ht 157.5 cm; Wt 122.7 kg
[2020-09-02 03:19] VITALS: BP 114/64
[~2020-09-02 03:19] MED LIST changes: -CYAN100T2 PO; +CYAN100T21 PO; -GADOTERATE 7.5 MMOL/15ML VIAL. IVP ONE; -WARF-78 PO; +WARF5TAB2 PO
[2020-09-02] MEDS ORDERED: IBUPROFEN 400 MG TABLET. PO ONE ×2 (04:00→04:45)
[2020-09-02] MEDS ORDERED: ACETAMINOPHEN 500 MG TABLET PO ONE (04:00)
[2020-09-02] MEDS ORDERED: CYCLOBENZAPRINE 10 MG TABLET. PO ONE (04:30)
[2020-09-02] MEDS ORDERED: CYCL10TA2 PO (05:04)
--- NOTE | 2020-09-02 05:04 | PHYS DOC ---
Past Medical History Past Medical History: Diverticulitis, Other Additional Past Medical Histor: CARPAL TUNNEL Past Surgical History: Cholecystectomy, Hysterectomy, Knee Replacement, Other Additional Past Surgical Histo: HERNIA REPAIR Smoking Status: Never Smoker Alcohol Use: None Drug Use: None Adult General Chief Complaint Chief Complaint: LOWER BACK PAIN OR INJURY [facility] HPI Patient is a 60 year old female presenting to the emergency department complaining of new onset of back pain. Patient is that she has an issue with chronic back pain however the over the last 2 weeks is developed worsening sensation of a squeezing right lower lumbar back pain which radiates into the right buttock. Patient states this is worse when she is moving or ambulating. Denies any numbness or weakness in the lower extremities. Denies any injury or fall. Denies any chest pain, nausea or vomiting Review of Systems Review of Systems Constitutional: Denies fever or chills [] Eyes: Denies change in visual acuity, redness, or eye pain [] HENT: Denies nasal congestion or sore throat [] Respiratory: Denies cough or shortness of breath [] Cardiovascular: No additional information not addressed in HPI [] GI: Denies abdominal pain, nausea, vomiting, bloody stools or diarrhea [] : Denies dysuria or hematuria [] Musculoskeletal: Denies back pain or joint pain [] Integument: Denies rash or skin lesions [] Neurologic: Denies headache, focal weakness or sensory changes [] Endocrine: Denies polyuria or polydipsia [] All other systems were reviewed and found to be within normal limits, except as documented in this note. Current Medications Current Medications Current Medications Medications (Trade) Dose Ordered Sig/Rossy Start Time Stop Time Status Last Admin Dose Admin Acetaminophen (Tylenol) 1,000 mg 1X ONCE 09/02/20 04:00 09/02/20 04:01 DC 09/02/20 04:19 1,000 MG Cyclobenzaprine HCl (Flexeril) 10 mg 1X ONCE 09/02/20 04:30 09/02/20 04:43 DC 09/02/20 04:20 10 MG Ibuprofen (Motrin) 800 mg 1X ONCE 09/02/20 04:45 09/02/20 04:46 DC Allergies Allergies Allergies Coded Allergies Type Severity Reaction Last Updated Verified Iodinated Contrast Media Allergy Intermediate hives, SOA, 07/05/19 Yes Metronidazole HCl Allergy Intermediate Hives, chest feels tight 07/05/19 Yes ciprofloxacin HCl Allergy Intermediate Hives, chest feels tight 07/05/19 Yes hydrocortisone Allergy Intermediate Hives, chest feels tight 07/05/19 Yes metronidazole Allergy Intermediate Hives, chest feels tight 07/05/19 Yes Physical Exam Physical Exam Constitutional: Well developed, well nourished, no acute distress, non-toxic appearance. [] HENT: Normocephalic, atraumatic, bilateral external ears normal, oropharynx myron st, no oral exudates, nose normal. [] Eyes: PERRLA, EOMI, conjunctiva normal, no discharge. [] Neck: Normal range of motion, no tenderness, supple, no stridor. [] Cardiovascular:Heart rate regular rhythm, no murmur [] Lungs & Thorax: Bilateral breath sounds clear to auscultation [] Abdomen: Bowel sounds normal, soft, no tenderness, no masses, no pulsatile masses. [] Skin: Warm, dry, no erythema, no rash. [] Back: Moderate R lower paraspinal tenderness with palpable spasm, no CVA tend erness. [] Extremities: No tenderness, no cyanosis, no clubbing, ROM intact, no edema. [] Neurologic: Alert and oriented X 3, normal motor function, normal sensory function, no focal deficits noted. [] Psychologic: Affect normal, judgement normal, mood normal. [] EKG EKG [] Radiology/Procedures Radiology/Procedures [] Course & Med Decision Making Course & Med Decision Making Pertinent Labs and Imaging studies reviewed. (See chart for details) 60-year-old female with acute onset of right lower lumbar back pain with palpable muscle spasms with the area. This is likely secondary to muscle pull or spasm. Will treat symptomatically and if improved will discharge home Dragon Disclaimer Dragon Disclaimer This electronic medical record was generated, in whole or in part, using a voice recognition dictation system. Departure Departure Impression: Primary Impression: Right low back pain Disposition: 01 DC HOME SELF CARE/HOMELESS Condition: GOOD Referrals: JENNIFER VICENTE MD (PCP) Patient Instructions: Back Pain, Adult Additional Instructions: EMERGENCY DEPARTMENT GENERAL DISCHARGE INSTRUCTIONS Thank you for coming to [facility] Emergency Department (ED) today and trusting us with you care. We trust that you had a positive experience in our Emergency Department. If you wish to speak to the department management, you may call the Director at [phone]. YOUR FOLLOW UP INSTRUCTIONS ARE FOLLOWS: 1. Do you have a private Doctor? If you do not have a private doctor, please ask for a resource list of physicians or clinics that may be able to assist you with follow up care. 2. The Emergency Physicain has interpreted your x-rays. The X-Ray specialist will also review them. If there is a change in the findings, you will be notified in 48 hours when at all possible. 3. A lab test or culture has been done, your results will be reviewed and you will be notified if you need a change in treatment. ADDITIONAL INSTRUCTIONS AND INFORMATION: 1. Your care today has been supervised by a physician who is specially trained in emergency care. Many problems require more than one evaluation for a complete diagnosis and treatment. We recommend that you schedule your follow up appointment as recommended to ensure complete treatment of you illness or injury. If you are unable to obtain follow up care and continue to have a problem, or if your condition worsens, we recommend that you return to the ED. 2. We are not able to safely determine your condition over the phone nor are we able to give sound medical advice over the phone. For these safety reasons, if you call for medical advice we will ask you to come to the ED for further evaluation. 3. If you have any questions regarding these discharge instructions please call the ED at [phone]. SAFETY INFORMATION: In the interest of safety, wellness, and injury prevention; we encourage you to wear your sealbelt, if you smoke; quite smoking, and we encourage family to use a protective helmet for bicycling and other sporting events that present an increased risk for head injury. IF YOUR SYMPTOMS WORSEN OR NEW SYMPTOMS DEVELOP, OR YOU HAVE CONCERNS ABOUT YOUR CONDITION; OR IF YOUR CONDITION WORSENS WHILE YOU ARE WAITING FOR YOUR FOLLOW UP APPOINTMENT; EITHER CONTACT YOUR PRIMARY CARE DOCTOR, THE PHYSICIAN WHOSE NAME AND NUMBER YOU WERE GIVEN, OR RETURN TO THE ED IMMEDIATELY. Scripts Cyclobenzaprine Hcl (CYCLOBENZAPRINE HCL) 10 Mg Tablet 1 TAB PO TID for pain, #21 TAB Prov: LARISSA LUNA MD 09/02/20 LARISSA LUNA MD Sep 02, 2020 05:04
== END 2020-09-02 05:13 | disposition home or self-care (01) ==
LOC: ER 03:19
DX: M54.5 Low back pain (principal); R20.2 Paresthesia of skin; Z90.49 Acquired absence of other specified parts of digestive tract; Z90.710 Acquired absence of both cervix and uterus; Z98.890 Other specified postprocedural states; Z91.041 Radiographic dye allergy status; Z88.1 Allergy status to other antibiotic agents; Z88.5 Allergy status to narcotic agent; Z88.8 Allergy status to other drugs, medicaments and biological substances
CPT/HCPCS: 99284

== ENCOUNTER → 2020-09-19 | Outpatient (CLI) | payer MEDICARE ==
[2020-09-02 03:19] VITALS: BP 114/64
[~2020-09-19] MED LIST changes: +CYCL10TA2 PO
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
== END ==
LOC: RAD 13:44
PROVIDERS: ATTEND Internal Medicine
DX: M47.816 Spondylosis without myelopathy or radiculopathy, lumbar region (principal)
CPT/HCPCS: 72100

== ENCOUNTER → 2020-11-21 | Outpatient (CLI) | payer MEDICARE ==
--- NOTE | 2020-11-21 12:11 | KCIC ---
Bilateral digital screening mammograms: Reason for examination: Routine screening. Comparison is made to previous studies dated back to 08/28/2014. Interpretation is made with the benefit of CAD. The skin and nipples show no abnormalities. No abnormal lymph nodes are seen. The breast parenchyma i s predominantly fatty. (Breast density: Category A.) There are no dominant masses, suspicious calcifi cations or architectural distortions. Benign calcifications are seen. Impression: No evidence of malignancy. Recommend routine screening. BI-RADS Category 2: Benign. "Our facility is accredited by the [employer] Mammography Program." This patient's information has been entered into a reminder system for the patient to be notified wit h the results of her examination and a target date for the next mammogram. Electronically signed by: Jillian Robert MD (11/21/2020 12:09 PM) [id number]
--- NOTE | 2020-11-21 13:26 | KCIC ---
INDICATION: Screening for osteopenia/osteoporosis. Postmenopausal evaluation. COMPARISON: 03/18/2018 TECHNIQUE: Bone densitometry was performed through the lumbar spine and proximal femur. IMPRESSION: Lumbar Spine: BMD: 1.27 T-Score: 2.0 Range: Normal. Decreased by 3 percent from prior. Proximal Femur: BMD: 0.93 T-Score: -0.1 Range: Normal. Decreased by 5 percent from prior. World Health Organization Criteria for Bone Density: T-Score: > -1.0: Normal Range < -1.0 to -2.5: Osteopenic Range < -2.5: Osteoporotic Range Electronically signed by: Venkat Gonzalez MD (11/21/2020 1:24 PM) [id number]
== END ==
LOC: KCIC MAMMO 10:36
PROVIDERS: ATTEND Internal Medicine
DX: Z12.31 Encounter for screening mammogram for malignant neoplasm of breast (principal); N95.1 Menopausal and female climacteric states
CPT/HCPCS: 77067; 77080

== ENCOUNTER 2020-12-31 17:48 | Emergency (ER) | payer OTHER, MEDICARE ==
[~2020-12-31] VITALS: Ht 157.5 cm; Wt 115.4 kg
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
[2020-12-31] MEDS ORDERED: MORPHINE SULFATE 4 MG/ML VIAL. IM ONE (22:30)
[2020-12-31 22:31] VITALS: BP 163/87
[2020-12-31] MEDS ORDERED: HYDR-2761 PO (22:52)
[2020-12-31] MEDS ORDERED: CYCL10TA2 PO (22:52)
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
== END 2020-12-31 23:18 | disposition home or self-care (01) ==
LOC: ER 17:48
DX: K86.2 Cyst of pancreas (principal); M79.605 Pain in left leg; M79.604 Pain in right leg; R10.84 Generalized abdominal pain; Z90.710 Acquired absence of both cervix and uterus; Z90.49 Acquired absence of other specified parts of digestive tract; Z91.041 Radiographic dye allergy status; Z88.1 Allergy status to other antibiotic agents; Z88.8 Allergy status to other drugs, medicaments and biological substances; G89.11 Acute pain due to trauma; V43.52XA Car driver injured in collision with other type car in traffic accident, initial encounter; Y93.89 Activity, other specified; Y92.488 Other paved roadways as the place of occurrence of the external cause; Y99.8 Other external cause status
CPT/HCPCS: 73552; 74176; 96372; 99284; J2270

== ENCOUNTER → 2021-11-27 | Outpatient (CLI) | payer BC, MEDICARE ==
[2021-02-18 11:00] VITALS: BP 110/67
[~2021-11-27] MED LIST changes: +ACET325T9 PO; +CHOL5000 PO; +CYCL10TA19 PO; -CYCL10TA2 PO; -ETOD400T PO; +ETOD400T3 PO; +HYDR-2761 PO; +MAGN400T48 PO; -MAGN400T5 PO; -OMEP40CA45 PO; +OMEP40CA7 PO; +POTA-121 PO; -POTA20TA4 PO; -POTA8TAB PO; +POTA8TAB57 PO; +TIZA-75 PO; -TIZA4TAB2 PO
--- NOTE | 2021-11-27 15:18 | RAD ---
EXAM: XR BILAT FEET 3 VIEWS, XR HAND 3 VIEWS 11/27/2021 10:40 AM CLINICAL INDICATION: Polyarthralgia COMPARISON: None FINDINGS: PA, oblique, and lateral views of the right and left hand. AP, oblique, and lateral views of the right left foot. Left hand: The bones are diffusely demineralized. There is no acute fracture. There is severe joint s pace, subchondral cysts, sclerosis, large aspect of the first CMC joint. Moderate joint space narrowi ng with small C5 7 second third MCP joints. Mild degenerative joint disease of the distal radioulnar joint. No erosions. No focal soft tissue abnormality. Right hand: The bones are diffusely demineralized. There is no acute fracture. There is moderate to s evere joint space narrowing with osteophytes at the second and third MCP joints. Mild at the first MC P joint Moderate joint space narrowing with prominent osteophytes at the first CMC joint. There is mo derate to severe degenerative joint disease of the distal radioulnar joint with subchondral cysts and osteophytes. No erosions. No focal soft tissue abnormality. Left foot: No acute fracture. There is hallux valgus. There are hammertoe deformities. Mild degenerat boyd changes at the great toe MTP joint and in the midfoot. There is a prominent plantar calcaneal ent hesophyte. No focal soft tissue abnormality. Right foot: No acute fracture. There is hallux valgus. There are hammertoe deformities. Mild degenera tive joint disease of the great toe MTP joint. Small plantar calcaneal enthesophyte. No focal soft ti ssue abnormality. IMPRESSION: 1. Left hand: Severe degenerative joint disease at the first CMC joint and moderate at the second and third MCP joints. 2. Right hand: Moderate to severe degenerative joint disease at the distal radioulnar joint, second a nd third MCP joints, and moderate at the first CMC joint. 3. Left and right foot: Hallux valgus, hammertoe deformities, mild degenerative joint disease of the great toe MTP joints. Electronically signed by: Ambar Martin MD (11/27/2021 3:16 PM) [id number]
== END ==
LOC: RAD 10:23
PROVIDERS: ATTEND Internal Medicine Rheumatology
DX: M19.041 Primary osteoarthritis, right hand (principal); M19.042 Primary osteoarthritis, left hand; M81.8 Other osteoporosis without current pathological fracture; M25.741 Osteophyte, right hand; M25.841 Other specified joint disorders, right hand; M25.842 Other specified joint disorders, left hand; M19.071 Primary osteoarthritis, right ankle and foot; M19.072 Primary osteoarthritis, left ankle and foot; M77.31 Calcaneal spur, right foot; M77.32 Calcaneal spur, left foot; M20.12 Hallux valgus (acquired), left foot; M20.11 Hallux valgus (acquired), right foot; M20.42 Other hammer toe(s) (acquired), left foot; M20.41 Other hammer toe(s) (acquired), right foot
CPT/HCPCS: 73130-50; 73630-50

== ENCOUNTER → 2021-11-27 | Outpatient (CLI) | payer BC, MEDICARE ==
[2021-02-18 11:00] VITALS: BP 110/67
--- NOTE | 2021-11-27 14:47 | RAD ---
EXAMINATION: MG BILAT SCREEN+[place] CLINICAL HISTORY: Screening TECHNIQUE: Digital craniocaudal and mediolateral oblique views of the bilateral breasts obtained with 3-D tomosynthesis. COMPARISON: 11/21/2020, 03/18/2018, 12/22/2016, 09/28/2015 BREAST COMPOSITION: The breasts are almost entirely fatty. FINDINGS: No evidence of suspicious mass, calcifications, or areas of architectural distortion. IMPRESSION: No mammographic evidence of malignancy. BI-RADS ASSESSMENT: Category 1: Negative RECOMMENDATION: Return for routine bilateral screening mammogram in one year. PQRS compliance statement - Patient information was entered into a reminder system with a target due date for the next mammogram. "Our facility is accredited by the [employer] Mammography Program." Electronically signed by: Lobo Caballero DO (11/27/2021 2:44 PM) [id number]
== END ==
LOC: MAMMO 09:12
PROVIDERS: ATTEND Internal Medicine
DX: Z12.31 Encounter for screening mammogram for malignant neoplasm of breast (principal)
CPT/HCPCS: 77063; 77067